=== PATIENT | female | born 1945 | race Caucasian/White ===

== ENCOUNTER → 2017-09-18 | Outpatient (REF) | payer MEDICARE | LOC: M LAB REF 17:44 | PROVIDERS: ATTEND Surgery | DX: C44.41 Basal cell carcinoma of skin of scalp and neck (principal) ==

== ENCOUNTER → 2018-05-16 | Outpatient (REF) | payer MEDICARE | LOC: M LAB REF 16:56 | DX: N76.0 Acute vaginitis (principal) | CPT/HCPCS: 87070 ==

== ENCOUNTER 2018-08-28 09:52 | Day surgery (SDC) | payer MEDICARE ==
[~2018-08-28 09:52] MED LIST: MIDAZOLAM INJ 2 MG/2 ML VIAL (J2250) As Ordered
[2018-08-28] MEDS: PROPARACAINE 0.5% OPHTH SOL 15ML OD (11:13)
[2018-08-28] MEDS: TROPICAMIDE 1% OPHTH SOLN 2ML OD (11:13)
[2018-08-28] MEDS: OFLOXACIN 0.3 % (OCUFLOX) OPTH SOL 5ML OD (11:13)
[2018-08-28] MEDS: PHENYLEPHRINE 2.5% OPHTH SOL 2ML OD (11:13)
[2018-08-28] MEDS ORDERED: fentaNYL 100 MCG/2 ML INJECTION (J3010) As Ordered (12:00)
[2018-08-28] MEDS: POVIDONE-IODINE 5% OPHTH PREP SOL 30ML As Ordered (12:00)
[2018-08-28] MEDS: BALANCED SALT IRRIGATION SOLUTION 500ML BAG (FOR OR EYE MACHINE) As Ordered (12:02)
[2018-08-28] MEDS: LIDOCAINE 0.75%/EPINEPHRINE 0.025% IN BSS 1ML SYR INTRACAMERAL (OR ONLY) As Ordered (12:02)
[2018-08-28] MEDS ORDERED: MIDAZOLAM INJ 2 MG/2 ML VIAL (J2250) As Ordered (12:03)
[2018-08-28] MEDS: DUOVISC (0.50ML VISCOAT/0.55ML PROVISC) OPHTH KIT As Ordered (12:08)
[2018-08-28] MEDS: CEFUROXIME 1MG/0.1ML INTRACAMERAL INJ As Ordered (12:09)
== END 2018-08-28 12:45 | disposition home or self-care (01) ==
LOC: M SDC 09:52
DX: H25.11 Age-related nuclear cataract, right eye (principal); I10 Essential (primary) hypertension; E11.9 Type 2 diabetes mellitus without complications; E78.5 Hyperlipidemia, unspecified; M12.9 Arthropathy, unspecified; R01.1 Cardiac murmur, unspecified; R06.02 Shortness of breath; E66.9 Obesity, unspecified; Z68.41 Body mass index [BMI] 40.0-44.9, adult; Z79.899 Other long term (current) drug therapy; Z85.828 Personal history of other malignant neoplasm of skin; Z78.0 Asymptomatic menopausal state
CPT/HCPCS: 66984

== ENCOUNTER 2018-09-04 07:25 | Day surgery (SDC) | payer MEDICARE ==
[~2018-09-04 07:25] MED LIST changes: +fentaNYL 100 MCG/2 ML INJECTION (J3010) As Ordered
[2018-09-04] MEDS: TROPICAMIDE 1% OPHTH SOLN 2ML OS (08:11)
[2018-09-04] MEDS: PROPARACAINE 0.5% OPHTH SOL 15ML OS (08:11)
[2018-09-04] MEDS: OFLOXACIN 0.3 % (OCUFLOX) OPTH SOL 5ML OS (08:11)
[2018-09-04] MEDS: PHENYLEPHRINE 2.5% OPHTH SOL 2ML OS (08:11)
[2018-09-04] MEDS: BALANCED SALT IRRIGATION SOLUTION 500ML BAG (FOR OR EYE MACHINE) As Ordered (09:24)
[2018-09-04] MEDS: DUOVISC (0.50ML VISCOAT/0.55ML PROVISC) OPHTH KIT As Ordered (09:24)
[2018-09-04] MEDS: POVIDONE-IODINE 5% OPHTH PREP SOL 30ML As Ordered (09:24)
[2018-09-04] MEDS: CEFUROXIME 1MG/0.1ML INTRACAMERAL INJ As Ordered (09:25)
[2018-09-04] MEDS: LIDOCAINE 0.75%/EPINEPHRINE 0.025% IN BSS 1ML SYR INTRACAMERAL (OR ONLY) As Ordered (09:25)
== END 2018-09-04 10:10 | disposition home or self-care (01) ==
LOC: M SDC 07:25
DX: H25.12 Age-related nuclear cataract, left eye (principal); I10 Essential (primary) hypertension; E11.9 Type 2 diabetes mellitus without complications; E78.5 Hyperlipidemia, unspecified; M12.9 Arthropathy, unspecified; R01.1 Cardiac murmur, unspecified; R06.02 Shortness of breath; E66.9 Obesity, unspecified; Z68.41 Body mass index [BMI] 40.0-44.9, adult; Z79.899 Other long term (current) drug therapy; Z85.828 Personal history of other malignant neoplasm of skin; Z78.0 Asymptomatic menopausal state
CPT/HCPCS: 66984

== ENCOUNTER 2018-12-23 15:20 | Inpatient (IN) | payer MEDICARE ==
[~2018-12-23] VITALS: Ht 160 cm; Wt 105.0 kg
[~2018-12-23 15:20] MED LIST changes: +AMLO2.5T3 PO; +FISH1000 PO; +HYDR-3713 PO; +HYDR25TAB PO; +IBUP200C25 PO; +LISI40TA PO; -MIDAZOLAM INJ 2 MG/2 ML VIAL (J2250) As Ordered; +OCUVTAB PO; +POTA10TA16 PO; -fentaNYL 100 MCG/2 ML INJECTION (J3010) As Ordered
[2018-12-23] MEDS ORDERED: LISI40TA PO (16:05)
[2018-12-23 17:20] LABS: BASO # 0.1 10^3/uL (0.0-0.2); BASO % 0.3 % (0.0-1.0); EOS # 0.1 10^3/uL (0.0-0.50); EOS % 0.6 % (0.0-3.0); HEMATOCRIT 38.4 % (36.0-47.0); HEMOGLOBIN 12.4 g/dl (12.0-15.5); LYMPH # 2.3 10^3/uL (1.5-4.5); LYMPH % 14.2 % (24.0-44.0); MEAN CORPUSCULAR HEMOGLOBIN 29.2 pg (27.0-33.0); MEAN CORPUSCULAR HGB CONC 32.3 g/dl (32.0-36.5); MEAN CORPUSCULAR VOLUME 90.6 fl (80.0-96.0); MONO # 1.1 10^3/uL (0.0-0.8); MONO % 6.5 % (0.0-5.0); NEUTROPHILS # 12.5 10^3/uL (1.8-7.7); NEUTROPHILS % 76.3 % (36.0-66.0); PLATELET COUNT, AUTOMATED 535 10^3/uL (150-450); RED BLOOD COUNT 4.24 10^6/uL (4.00-5.40); WHITE BLOOD COUNT 16.3 10^3/uL (4.0-10.0)
[2018-12-23 17:23] LABS: INR 1.13; PROTHROMBIN TIME 14.7 SECONDS (12.1-14.4)
[2018-12-23 17:24] LABS: PARTIAL THROMBOPLASTIN TIME 30.1 SECONDS (25.4-37.6)
[2018-12-23 17:33] LABS: ALT/SGPT 87 U/L (12-78); BLOOD UREA NITROGEN 30 MG/DL (7-18); CALCIUM LEVEL 8.9 MG/DL (8.8-10.2); CARBON DIOXIDE LEVEL 23 MEQ/L (21-32); CHLORIDE LEVEL 106 MEQ/L (98-107); CK-MB VALUE MASS < 1.0 NG/ML (<3.6); CPK CREATINE PHOSPHOKINASE 53 U/L (26-192); GLOMERULAR FILTRATION RATE 31.2 (>39); GLUCOSE, FASTING 190 MG/DL (70-100); MB/CK RELATIVE INDEX 1.89 (< OR =4); POTASSIUM SERUM 4.5 MEQ/L (3.5-5.1); SODIUM LEVEL 138 MEQ/L (136-145)
[2018-12-23 17:34] LABS: ALBUMIN 3.5 GM/DL (3.2-5.2); BILIRUBIN,DIRECT 0.2 MG/DL (0.0-0.2); BILIRUBIN,TOTAL 0.5 MG/DL (0.2-1.0); FREE T4 1.62 NG/DL (0.76-1.46); TOTAL PROTEIN 6.6 GM/DL (6.4-8.2); TROPONIN I < 0.02 NG/ML (< 0.10)
--- NOTE | 2018-12-23 17:56 | REP ---
PA and lateral chest: Comparison is 03/12/2013. There is cardiomegaly. Cardiac size has increased from the prior study. There are bilateral pleural effusions as an interval change. Lung gunter are clear. The ulisses, mediastinum, skeletal structures are unremarkable. Impression: Cardiomegaly and bilateral pleural effusions. Lung gunter are clear. Electronically Signed by Antwan James MD 12/23/2018 05:47 P
[2018-12-23 18:20] LABS: NT-PRO BNP 328 PG/ML (<450)
[2018-12-23 18:21] LABS: INFLUENZA A AMPLIFICATION NEGATIVE (NEGATIVE); INFLUENZA B AMPLIFICATION NEGATIVE (NEGATIVE)
[2018-12-23 19:51] LABS: D-DIMER QUANT > 4000.00 ng/ml (<500)
--- NOTE | 2018-12-23 21:58 | REPVR ---
EXAM: US Duplex Bilateral Lower Extremity Veins EXAM DATE/TIME: 12/23/2018 9:36 PM CLINICAL HISTORY: 73 years old, female; Signs and symptoms; Edema, localized; Lower extremity, bilateral; Additional info: Low ext edema R/O dvt TECHNIQUE: Real-time duplex ultrasound of the Bilateral Lower Extremities with 2-D merino scale, color Doppler flow and spectral waveform analysis. Complete exam focused on the bilateral lower extremity veins. COMPARISON: No relevant prior studies available. FINDINGS: Right deep veins: Unremarkable. The common femoral, femoral, proximal profunda femoral and popliteal veins are patent without thrombus. Normal Doppler waveforms. Normal compressibility and/or augmentation response. Right superficial veins: Saphenofemoral junction is patent without thrombus. Left deep veins: Unremarkable. The common femoral, femoral, proximal profunda femoral and popliteal veins are patent without thrombus. Normal Doppler waveforms. Normal compressibility and/or augmentation response. Left superficial veins: Saphenofemoral junction is patent without thrombus. Soft tissues: Unremarkable. IMPRESSION: No sonographic evidence of deep vein thrombosis. Electronically signed by: Hunter Teague On 12/23/2018 21:58:25 PM
[2018-12-23] MEDS ORDERED: NS 1,000 ML IV ONE (23:00)
[2018-12-23] MEDS ORDERED: HEPARIN DRIP 25,000 UNITS in APPROPRIATE DILUENT 1 EA IV SCH (23:31)
[2018-12-23] MEDS ORDERED: HEPARIN SOD (PORCINE) 5000 UNITS/ML VIAL IV PRN (23:45)
[2018-12-24] VITALS (26 sets, daily range): BP systolic 108–165; BP diastolic 57–96
[2018-12-24] MEDS ORDERED: ACETAMINOPHEN TAB 650MG DOSE (2X325MG) PO PRN (00:30)
--- NOTE | 2018-12-24 01:50 | HPEPDOC ---
[facility] Medical History & Physical Date of Admission Dec 23, 2018 Attending Physician: MELVA SANON MD History and Physical CHIEF COMPLAINT: Shortness of breath HISTORY OF PRESENT ILLNESS: Patient is a 73-year-old female who presented to the [facility] emergency department with complaint of shortness of breath. Patient states that her shortness of breath began on 12/12/2018. 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 Her chest pain has since resolved. However, her shortness of breath has continued since December 12. She states that her shortness of breath has w orsened since that time. Patient states that she does have increased short of breath with ambulation. She denies any cough or hemoptysis. She denies any increased sputum production. She denies difficulty lying flat. She denies waking up short of breath. Patient does state that she has recently traveled to [place] via car. She states that while in [place] on vacation she did develop chills. She currently denies any fevers, however, has not taken her temperature. She denies pain on inspiration or any pleuritic symptoms. She does admit to bilateral lower extremity edema. However, today she denies any calf pain or erythema. Patient denies any history of coagulation disorders either herself or her family. She denies any cardiac history with exception to hypertension. Patient states that she is not on oxygen at home. Patient is a former smoker and quit over 30 years ago. In the ER patient received a chest x-ray which revealed cardiomegaly and bilateral pleural effusions. She additionally received a venous doppler of her lower extremities which was unrevealing for DVT. Hospitalist service was consulted and patient was admitted PAST MEDICAL HISTORY: 1. Hypertension PAST SURGICAL HISTORY: None SOCIAL HISTORY: Patient is a former smoker who quit over 30 years ago. She denies any alcohol use or illicit drug use. She currently lives at home with her family FAMILY HISTORY: Father had coronary artery bypass grafting. ALLERGIES: Please see below. REVIEW OF SYSTEMS: CONSTITUTIONAL: Patient denies fevers, chills, night sweats, unintentional weight loss or weight gain HEENT:. Admits to dry cough, denies congestion or posterior drainage. CARDIOVASCULAR:. Denies chest pain but admits to chest tightness. Denies palpitations or feelings of heart racing. RESPIRATORY: Complains of shortness of breath, worsening for past week. Denies hemoptysis. Complains of dry cough. Denies wheezing GASTROINTESTINAL:. Denies abdominal pain. Denies nausea, vomiting, diarrhea or constipation GENITOURINARY:. Denies difficulty with urination. Denies dysuria. Denies increased frequency, urgency. SKIN:. Denies any rashes or lesions. MUSCULOSKELETAL:. Complains of chronic bilateral knee pain. NEUROLOGICAL: Denies changes in gait or speech. Denies muscle weakness PSYCHIATRIC: Denies feelings of anxiety, depression. ENDOCRINE: Denies heat intolerance or cold intolerance. HEMATOLOGIC/LYMPHATIC:. Denies easy bruising or bleeding. HOME MEDICATIONS: Please see below. PHYSICAL EXAMINATION: VITAL SIGNS: Temperature 98.1, pulse 104, respiratory rate, 20, blood pressure 184\84, pulse oximetry 95 % on room air. GENERAL APPEARANCE:. Patient is awake, alert and oriented 3. She appears no acute distress. She is lying comfortably in bed. Family is present at bedside. HEENT: Atraumatic, normocephalic. Eyes are nonicteric. Trachea is midline. Dentition is fair. CARDIOVASCULAR:. Normal S1, S2. Regular rate and rhythm. No clicks, rubs or murmurs. LUNGS: Clear vesicular lung sounds bilaterally with good respiratory effort. No accessory muscle use. Oxygen saturations of 95-98% on room air. ABDOMEN: Soft, nondistended, nontender to palpation. Positive bowel sounds throughout EXTREMITIES: Slight 1-2 mm nonpitting edema present in bilateral lower extremities, 2+ posterior tibial pulse 2+ radial pulses bilaterally PSYCHIATRIC: Mood and affect appear appropriate. LABORATORY DATA: See below. IMAGING: PA and lateral chest: Comparison is 03/12/2013. There is cardiomegaly. Cardiac size has increased from the prior study. There are bilateral pleural effusions as an interval change. Lung gunter are clear. The ulisses, mediastinum, skeletal structures are unremarkable. Impression: Cardiomegaly and bilateral pleural effusions. Lung gunter are clear. Electronically Signed by Antwan James MD 12/23/2018 05:47 P EXAM: US Duplex Bilateral Lower Extremity Veins EXAM DATE/TIME: 12/23/2018 9:36 PM CLINICAL HISTORY: 73 years old, female; Signs and symptoms; Edema, localized; Lower extremity, bilateral; Additional info: Low ext edema R/O dvt TECHNIQUE: Real-time duplex ultrasound of the Bilateral Lower Extremities with 2-D merino scale, color Doppler flow and spectral waveform analysis. Complete exam focused on the bilateral lower extremity veins. COMPARISON: No relevant prior studies available. FINDINGS: Right deep veins: Unremarkable. The common femoral, femoral, proximal profunda femoral and popliteal veins are patent without thrombus. Normal Doppler waveforms. Normal compressibility and/or augmentation response. Right superficial veins: Saphenofemoral junction is patent without thrombus. Left deep veins: Unremarkable. The common femoral, femoral, proximal profunda femoral and popliteal veins are patent without thrombus. Normal Doppler waveforms. Normal compressibility and/or augmentation response. Left superficial veins: Saphenofemoral junction is patent without thrombus. Soft tissues: Unremarkable. IMPRESSION: No sonographic evidence of deep vein thrombosis. Electronically signed by: Hunter Teague On 12/23/2018 21:58:25 PM MICROBIOLOGY: Please see below. ASSESSMENT and PLAN: 1. Shortness of breath 2/2 Community acquired pneumonia vs pleural effusion vs pulmonary embolism -Patient has developed shortness of breath which has been worsening over the past couple weeks. Chest X-ray in the ER revealed cardiomegaly with bilateral pleural effusions. Patient does admit to chills. Consideration of pneumonia vs pleural effusions. Clinically patient does not appear to be in heart failure. Patient will receive IV Rocephin for possible Pneumonia. -Patient has history of recent travel/immobilization. Venous doppler of lower extremities was unrevealing for DVT. Patient has elevated D-dimer. She remains tachycardic on exam. Patients creatinine is currently elevated and she is unable to receive a CT angiogram. Consider V/Q scan in the AM -Patient to be placed on heparin drip for possible PE pending V/Q scan -Consider possible Echocardiogram for new onset heart failure 2. Hypertension -Continue home medications including Norvasc and hydrochlorothiazide -Hold lisinopril due to elevated creatinine 3. DVT prophylaxis -Patient currently on heparin drip Vital Signs Vital Signs Date Time Temp Pulse Resp B/P (MAP) Pulse Ox O2 Delivery O2 Flow Rate FiO2 12/23/18 20:33 98.9 176/92 (120) 12/23/18 20:31 104 18 99 Room Air 12/23/18 16:01 98 Laboratory Data Labs 24H Laboratory Tests 2 12/23/18 15:50: Immature Granulocyte % (Auto) 2.1, White Blood Count 16.3H, Red Blood Count 4.24, Hemoglobin 12.4, Hematocrit 38.4, Mean Corpuscular Volume 90.6, Mean Corpuscular Hemoglobin 29.2, Mean Corpuscular Hemoglobin Concent 32.3, Red Cell Distribution Width 13.1, Platelet Count 535H, Neutrophils (%) (Auto) 76.3H, Lymphocytes (%) (Auto) 14.2L, Monocytes (%) (Auto) 6.5H, Eosinophils (%) (Auto) 0.6, Basophils (%) (Auto) 0.3, Neutrophils # (Auto) 12.5H, Lymphocytes # (Auto) 2.3, Monocytes # (Auto) 1.1H, Eosinophils # (Auto) 0.1, Basophils # (Auto) 0.1, Nucleated Red Blood Cells % (auto) 0.0, Prothrombin Time 14.7H, Prothromb Time International Ratio 1.13, Activated Partial Thromboplast Time 30.1, D-Dimer, Quantitative > 4000.00H, Anion Gap 9, Glomerular Filtration Rate 31.2L, Calcium Level 8.9, Aspartate Amino Transf (AST/SGOT) 30, Alanine Aminotransferase (ALT/SGPT) 87H, Alkaline Phosphatase 186H, Total Bilirubin 0.5, Direct Bilirubin 0.2, Total Creatine Kinase 53, Creatine Kinase MB < 1.0, Creatine Kinase MB Relative Index 1.89, Troponin I < 0.02, LH-Ock-L-Type Natriuretic Peptide 328, Total Protein 6.6, Albumin 3.5, Albumin/Globulin Ratio 1.13, Thyroid Stimulating Hormone (TSH) 2.570, Free Thyroxine 1.62H 12/23/18 17:28: Influenza Type A (RT-PCR) NEGATIVE, Influenza Type B (RT-PCR) NEGATIVE CBC/BMP Laboratory Tests 12/23/18 15:50 Red Blood Count 4.24, Mean Corpuscular Volume 90.6, Mean Corpuscular Hemoglobin 29.2, Mean Corpuscular Hemoglobin Concent 32.3, Red Cell Distribution Width 13.1, Neutrophils (%) (Auto) 76.3 H, Lymphocytes (%) (Auto) 14.2 L, Monocytes (%) (Auto) 6.5 H, Eosinophils (%) (Auto) 0.6, Basophils (%) (Auto) 0.3, Neutrophils # (Auto) 12.5 H, Lymphocytes # (Auto) 2.3, Monocytes # (Auto) 1.1 H, Eosinophils # (Auto) 0.1, Basophils # (Auto) 0.1 Home Medications Scheduled Amlodipine Besylate (Amlodipine Besylate) 2.5 Mg Tab, 2.5 MG PO DAILY Hydrochlorothiazide (Hydrochlorothiazide) 25 Mg Tab, 25 MG PO DAILY Lisinopril (Lisinopril) 40 Mg Tab, 40 MG PO DAILY Potassium Chloride (Potassium Chloride ER) 10 Meq Tab, 10 MEQ PO DAILY Allergies Coded Allergies: No Known Allergies (Unverified , 08/26/18) GME ATTESTATION GME ATTESTATION My faculty preceptor for this patient encounter was physically present during the encounter and was fully available. All aspects of the patient interview, examination, medical decision making process, and medical care plan development were reviewed and approved by the faculty preceptor. The faculty preceptor is aware and concurs with the plan as stated in the body of this note and will attest to such by his/her cosignature. ADRIEL COOPER DO Dec 24, 2018 01:04 TYE GARCIA MD Dec 24, 2018 21:48
[2018-12-24] MEDS: FUROSEMIDE 40 MG/4 ML VIAL (J1940) IV ONE ×2 (07:45→08:36)
[2018-12-24 07:49] LABS: HEMATOCRIT 35.3 % (36.0-47.0); HEMOGLOBIN 11.5 g/dl (12.0-15.5); MEAN CORPUSCULAR HEMOGLOBIN 29.4 pg (27.0-33.0); MEAN CORPUSCULAR HGB CONC 32.6 g/dl (32.0-36.5); MEAN CORPUSCULAR VOLUME 90.3 fl (80.0-96.0); PLATELET COUNT, AUTOMATED 440 10^3/uL (150-450); RED BLOOD COUNT 3.91 10^6/uL (4.00-5.40); WHITE BLOOD COUNT 14.3 10^3/uL (4.0-10.0)
[2018-12-24 08:09] LABS: CALCIUM LEVEL 8.5 MG/DL (8.8-10.2); CREATININE FOR GFR 1.5 MG/DL (0.55-1.30); POTASSIUM SERUM 4.1 MEQ/L (3.5-5.1)
[2018-12-24] MEDS: POTASSIUM CHLORIDE 10 MEQ SR TABLET PO SCH (08:37)
[2018-12-24] MEDS ORDERED: hydroCHLOROthiazide 25 MG TAB PO SCH (09:00)
--- NOTE | 2018-12-24 09:09 | ECGEPIP ---
Stationary ECG Study [facility] - ED Test Date: 2018-12-23 Pat Name: AUSTIN DENNIS Department: Room: - Gender: F Paint Technician: JUAN PABLO : 1945 Requested By: Morteza Bates Order Number: [id number] Reading MD: Tunde Bazan Measurements Intervals Pateros Rate: 106 P: 43 NE: 183 QRS: -18 QRSD: 88 T: 81 QT: 323 QTc: 430 Interpretive Statements SINUS TACHYCARDIA Delayed anterior R wave progression Low voltages throughout Nonspecific T wave abnormality Comparison tracing not on file Electronically Signed On 12-24-2018 9:09:21 EST by Tunde Bazan
[2018-12-24] MEDS ORDERED: D5W/0.9% SODIUM CHLORIDE 1,000 ML IV SCH (09:51)
--- NOTE | 2018-12-24 10:17 | REP ---
CT study chest without contrast: History: Pericardial effusion. Recent chest x-ray showed bilateral pleural effusions. CT findings: CT confirms the presence of small bilateral pleural effusions. There is a [id number] pericardial effusion also noted. There is no overt evidence of right ventricular compression or deformity. The left atrium appears somewhat prominent measuring up to 4 cm in AP dimension. There is left anterior descending coronary artery focal atherosclerotic calcification. There is no evidence of hilar or mediastinal mass or adenopathy. 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 Lung window settings show mild discoid atelectatic changes in the lower lobes bilaterally adjacent to the effusions. No pulmonary mass or significant nodule is seen. No infiltrate is noted. No bony destructive lesion is appreciated. No adrenal lesion is seen. Gallbladder is surgically absent. There is a cyst in the upper pole of the right kidney. The visualized upper abdominal structures are otherwise unremarkable. Impression: Moderate to large pericardial effusion. Small bilateral pleural effusions. Bilateral lower lobe discoid atelectatic changes. Focal atherosclerotic calcification in the left anterior descending coronary artery. Electronically Signed by Roger Artis MD 12/24/2018 11:00 A
[2018-12-24] MEDS ORDERED: FLUMAZENIL 0.5 MG/5 ML VIAL As Ordered ONE (10:37)
[2018-12-24] MEDS ORDERED: MIDAZOLAM INJ 2 MG/2 ML VIAL (J2250) As Ordered ONE (10:38)
[2018-12-24] MEDS ORDERED: LIDOCAINE 1% MDV 20ML VIAL As Ordered ONE (10:39)
[2018-12-24] MEDS ORDERED: KCL 20MEQ IN D5/NS 1000ML 1,000 ML IV SCH (11:32)
[2018-12-24] MEDS: PERCOCET 5MG/325MG TAB PO PRN ×3 (11:40→21:50)
[2018-12-24] MEDS ORDERED: PERCOCET 5MG/325MG TAB As Ordered ONE (11:42)
[2018-12-24] MEDS ORDERED: BISACODYL 10 MG SUPP PR PRN (11:45)
[2018-12-24] MEDS ORDERED: LEVALBUTEROL 1.25 MG/0.5 ML CONCENTRATE NEB NEB PRN (11:45)
[2018-12-24] MEDS ORDERED: ONDANSETRON 4MG/2ML VIAL (J2405) IV PRN (11:45)
--- NOTE | 2018-12-24 12:12 | REP ---
PORTABLE CHEST: AP portable view of the chest is performed and compared with prior study of 12/23/2018. Left pericardial drain is seen. There is no pneumothorax or pneumomediastinum. Cardiac silhouette has mildly decreased in size. There is parenchymal opacity in the left base. Electronically Signed by Antwan Howard MD 12/24/2018 11:02 P
[2018-12-24] MEDS ORDERED: LIDOCAINE 1% MDV 20ML VIAL SC ONE (12:30)
[2018-12-24] MEDS ORDERED: MIDAZOLAM INJ 2 MG/2 ML VIAL (J2250) IV ONE (12:30)
[2018-12-24 12:38] LABS: PH BODY FLUID 7.724 UNITS (NOT ESTABLISHED); SOURCE, BODY FLUID pH PLEURAL
[2018-12-24 13:04] LABS: APPEARANCE, BODY FLUID CLOTTED (CLEAR); SOURCE, BODY FLUID PERICARDIAL
[2018-12-24] MEDS: DOCUSATE SODIUM 100 MG CAP PO SCH ×2 (13:08→21:48)
[2018-12-24] MEDS: MOM 30ML SUSPENSION UDC PO SCH (13:08)
[2018-12-24 13:10] LABS: SOURCE, BODY FLUID TOT PROTEIN PERICARDIAL; TOTAL PROTEIN, BODY FLUID 4.5 G/DL (NOT ESTABLISHED)
[2018-12-24 13:11] LABS: AMYLASE, BODY FLUID < 25 U/L (NOT ESTABLISHED); CHOLESTEROL, BODY FLUID 115 MG/DL (NOT ESTABLISHED); LDH, BODY FLUID 2612 U/L (NOT ESTABLISHED); SOURCE, BODY FLUID ALBUMIN PERICARDIAL; SOURCE, BODY FLUID AMYLASE PERICARDIAL; SOURCE, BODY FLUID CHOL PERICARDIAL; SOURCE, BODY FLUID GLUCOSE PERICARDIAL; SOURCE, BODY FLUID LDH PERICARDIAL; SOURCE, BODY FLUID TRIG PERICARDIAL; TRIGLYCERIDE, BODY FLUID 101 MG/DL (NOT ESTABLISHED)
--- NOTE | 2018-12-24 14:17 | IPNPDOC ---
Text Note Date of Service The patient was seen on 12/24/18. NOTE Subjective: Patient continued to be SOB this morning. Denied any cough or phle gm. She confirms that she reached [place] on 12/07 then started feeling chills every night from 12/10 and then on 12/12 she had a sharp severe chest pain which woke her up form sleep which lasted for a few minutes then resolved. Since then she has been becoming more and more short of breath. She drove back up here in the end of November and continues to become more SOB. Echo done engineering and operations director showed large pericardial effusion with Features of Tamponade. She was urgently moved to ICU. Dr Cochran was consulted and she had a pericardiocentesis done with removal of 500 cc of bloody fluid. He felt this was all old blood. A pericardial drain was left in place. Heparin infusion has been stopped. PHYSICAL EXAMINATION: VITAL SIGNS: As below GENERAL APPEARANCE:. Patient is awake, alert and oriented 3. She appears no acute distress. She is lying comfortably in bed. Family is present at bedside. HEENT: Atraumatic, normocephalic. Eyes are nonicteric. Trachea is midline. Dentition is fair. CARDIOVASCULAR:. Normal S1, S2. Regular rate and rhythm. No clicks, rubs or murmurs. LUNGS: Clear vesicular lung sounds bilaterally with good respiratory effort. No accessory muscle use. Oxygen saturations of 95-98% on room air. ABDOMEN: Soft, nondistended, nontender to palpation. Positive bowel sounds t hroughout EXTREMITIES:No edema. 2+ posterior tibial pulse 2+ radial pulses bilaterally PSYCHIATRIC: Mood and affect appear appropriate. Labs and Radiology: reviewed. Assessment and Plan: Patient is a 73-year-old female with PMH of Hypertension , arthritis, Morbid obesity, who presented to the [facility] emergency department with complaint of shortness of breath. Patient states that her shortness of breath began on 12/12/2018. 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 Her chest pain has since resolved. However, her shortness of breath has continued since December 12. She states that her shortness of breath has worsened since that time. Patient states that she does have increased short of breath with ambulation. She denies any cough or hemoptysis. She denies any increased sputum production. She denies difficulty lying flat. She denies waking up short of breath. Patient does state that she has recently traveled to [place] via car. She states that while in [place] on vacation she did develop chills. She currently denies any fevers, however, has not taken her temperature. She denies pain on inspiration or any pleuritic symptoms. She does admit to bilateral lower extremity edema. However, today she denies any calf pain or erythema. Patient denies any history of coagulation disorders either herself or her family. She denies any cardiac history with exception to hypertension. Patient states that she is not on oxygen at home. Patient is a former smoker and quit over 30 years ago. In the ER patient received a chest x-ray which revealed cardiomegaly and bilateral pleural effusions. She additionally received a venous doppler of her lower extremities which was unrevealing for DVT. Hospitalist service was consulted and patient was admitted to evaluate for SOB and possible, CHF or PE. SHe was Found to have pericardial Tamponade in echocardiogram. SOB due to Pericardial tamponade relieved by pericardial drain most probably viral in etiology keeping in view the history. Fluid work up has been sent out. Dr Victoria with follow in place of Dr Cochran as be will be on vacation from tomorrow. Unlikely to have a second cause of SOB like PE. DOppler US of legs negative . D dimer can be high from pericardial effusion also. SO will dc heparin infusion and cancel VQ scan. If however Patient continues to be SOB will then again work up for PE Hypertension well controlled. Continue amlodipine. will hold lisinopril and HCTZ for now. BETH do not have any baseline creatinine. will continue to hold lisinopril. DVT prophylaxis. sq heparin VS,Fishbone, I+O VS, Fishbone, I+O Laboratory Tests 12/23/18 15:50 Red Blood Count 4.24, Mean Corpuscular Volume 90.6, Mean Corpuscular Hemoglobin 29.2, Mean Corpuscular Hemoglobin Concent 32.3, Red Cell Distribution Width 13.1, Neutrophils (%) (Auto) 76.3 H, Lymphocytes (%) (Auto) 14.2 L, Monocytes (%) (Auto) 6.5 H, Eosinophils (%) (Auto) 0.6, Basophils (%) (Auto) 0.3, Neutrophils # (Auto) 12.5 H, Lymphocytes # (Auto) 2.3, Monocytes # (Auto) 1.1 H, Eosinophils # (Auto) 0.1, Basophils # (Auto) 0.1 12/24/18 07:35 Red Blood Count 3.91 L, Mean Corpuscular Volume 90.3, Mean Corpuscular Hemoglobin 29.4, Mean Corpuscular Hemoglobin Concent 32.6, Red Cell Distribution Width 13.2, Calcium Level 8.5 L Vital Signs Date Time Temp Pulse Resp B/P (MAP) Pulse Ox O2 Delivery O2 Flow Rate FiO2 12/24/18 12:00 98.2 97 18 134/70 (91) 96 12/24/18 10:55 2.0 12/24/18 00:27 Room Air 12/23/18 16:01 98 I&O- Last 24 Hours up to 6 AM 12/24/18 06:00 Intake Total 350 ml Balance 350 ml MELVA SANON MD Dec 24, 2018 14:17
[2018-12-24] MEDS: LEVALBUTEROL 1.25 MG/0.5 ML CONCENTRATE NEB NEB SCH ×2 (14:36→21:58)
--- NOTE | 2018-12-24 14:44 | RO ---
DATE OF PROCEDURE: 12/24/2018 PREPROCEDURE DIAGNOSIS: Pericardial effusion with tamponade. POSTPROCEDURE DIAGNOSIS: Pericardial effusion with tamponade. PROCEDURE: Tube thoracostomy. SURGEON: Sonny Cochran MD CORPORATE DIRECTOR: ANESTHESIA: FINDINGS: 500 mL of old bloody fluid was drained from the pericardium. It was sent for the requisite cultures and sensitivities, chemistries, hematologies, and cytologies DESCRIPTION OF PROCEDURE: Under satisfactory moderate sedation achieved with 6 mg of Versed, the patient was prepped and draped in the usual sterile fashion. With echocardiographic control, the pericardial effusion was noted best at the apex of the heart, of the left chest. The area was infiltrated with 1% lidocaine, and the explorer needle was placed into the pericardium under echocardiographic control. Wire was placed, and then the wire site was then incised and dilated. A dilator was then passed into the pericardium, followed by a percutaneous drain. This then drained 500 mL of what looked like old blood or blood-tinged fluid. A catheter was secured to the chest wall with two 0 silk sutures and a #2 Tevdek suture. It was placed to pericardial suction. The patient tolerated the procedure well, and a chest x-ray is pending.
--- NOTE | 2018-12-24 15:46 | CR ---
DATE OF CONSULTATION: 12/24/2018 REFERRING PHYSICIAN: Lori De La Rosa MD of the Hospitalist Service. REASON FOR CONSULTATION: Pericardial effusion and possible tamponade. HISTORY OF PRESENT ILLNESS: The patient is a 73-year-old white female who was admitted last night from the emergency room. Her story starts approximately 1-1/2 weeks ago when she was in [place] at [facility] when she started to have fever, chills and sweats along with a cough. This then progressed to increasing shortness of breath. Last night she felt quite distressed and sought medical attention at her primary care doctor who then sent her to the emergency room. She has had a cough accompanying her fever and chills, but no significant sputum production and certainly no hemoptysis. There is no chest pain or chest discomfort. She then developed some chest pressure yesterday, which at least prompted to seek medical attention. Since [place] she denies fever, chills or sweats. There is no pain with inspiration. She has no orthopnea or paroxysmal nocturnal dyspnea. She did drive back from [place]. When seen in the emergency room her creatinine was 1.[address] angiogram was undertaken. She was started on heparin empirically. PAST MEDICAL HISTORY: Hypertension. PAST SURGICAL HISTORY: None. ALLERGIES: None. HABITS: Was a former smoker. Quit over 30 years ago. Denies alcohol or illicit drug use. FAMILY HISTORY: Father had coronary and bypass grafting. REVIEW OF SYSTEMS: Constitutional: See HPI. Eyes: Without amaurosis fugax. Without prior jaundice or diplopia. Cardiac: See HPI. Has noted peripheral edema when she was in [place], but none now. GI: Without abdominal pain, without nausea, vomiting, diarrhea, constipation, melena, hematochezia or hematemesis. : Without dysuria, hematuria or history of renal stones. Endocrine: Without diabetes. Without thyroid disease. Hematological: Without prolonged bleeding times. Neurologic: Without paresthesias, paralysis or prior seizures. Psychiatric: Without pathological anxiety, depression or psychoses. PHYSICAL EXAMINATION: General: A well-developed, obese white female in some respiratory distress with shortness of breath. She occasionally pursed lip breathes. Vital signs: Temperature 98.2, heart rate is 104 in sinus tachycardia. Respiratory rate is 18 to 21 without the use of accessory muscles and she is 98 to 97% saturated on 2 liters nasal cannula. Blood pressure is 134/63. There is no pulsus paradoxus. Head: Normocephalic. Eyes: Equal, round and reactive to light. Extraocular muscles intact. Sclera anicteric. Nose: Without deformity. Mouth: Shows her mucous membranes to be pink and moist. Lips and commissures are without lesions. There is no thrush. Eyes: Show her pupils to be equal, reactive. Extraocular muscles intact. Sclera anicteric. Neck is supple. There is no jugular venous distention, no subcutaneous emphysema. Trachea is midline. There is no thyromegaly and no lymphadenopathy. She has 2+ carotid upstrokes without carotid bruits. Lungs: Show equal breath sounds on either side with normal vesicular sounds, without wheezes, rhonchi or rales. Cardiac examination: Shows distant heart sounds, but with a normal S1, S2, without murmurs, clicks, gallops or rubs that I can ascertain. I cannot feel her point of maximal impulse (PMI) through her obesity. Abdomen: Soft and nontender. Bowel sounds are positive. There is no hepatomegaly. There is no costovertebral angle (CVA) tenderness. Extremities: Show trace pretibial edema, no calf tenderness. No differential swelling of the upper extremities. Skin: Warm and dry, and perfused without cyanosis or mottling including that of the nail beds and the knees. Neuro: Shows II through XII intact. Gross motor and gross sensation intact. Gait is not tested. Psychiatric: Shows her to be awake, alert and oriented times three, with appropriate mood, affect, and conversational. Her white count today is 14.3, down from 16.3 yesterday. Hemoglobin and hematocrit are 11.5 and 35.3 with a platelet count of 440. Yesterdays differential showed 76% neutrophils, 14% lymphocytes and 6% monocytes. There are no immature forms, no toxic granulations. Her electrolytes this morning are normal with a BUN and creatinine of 25 and 1.50, improved from 31.70 yesterday. Glucose is 146 with a calcium of 8.5. PT/INR 14.7 over 1.13 and her PTT is 59 seconds at 7:00 this morning. Her heparin has since been turned off. Her chest x-ray shows a globular heart. Costophrenic angles are sharp, although there looks to be a slight opacity in the left costophrenic angle. I see no other infiltrates. The lateral film shows what is probably a left pleural effusion. I ordered a CT scan on her upon being consulted. The CT scan shows a concentric pericardial effusion. She has bilateral small pleural effusions. They are about equal on either side. There is atelectasis or a possible mass in the left lower lobe. It could also be a consolidated lung. There are no other masses in the lung. She has a pretracheal node just before the jairo that has a lucent center. It is not pathologically enlarged. Her echocardiogram again shows a concentric effusion. The closest approach of the effusion to the chest wall is at the apex of the heart. There is also a window at the subxyphoid window. There is collapse of the right atrium. IMPRESSION: 1. Pericardial effusion with impending tamponade. 2. Infectious upper respiratory infection (URI) process two weeks ago. 3. Hypertension. 4. Probable acute renal failure, probably secondary to decreased perfusion. PLAN AND DISCUSSION: I will immediately undertake a pericardial centesis as well as a tube pericardiostomy. Given her history I suspect this is going to be an infectious process, most likely a viral process. We will send the fluid for all the requisite investigations including cytology, hematology, bacteriologies and chemistries. In my absence, as I am leaving tomorrow, the pulmonary service will monitor her chest tube and remove it when it is less than 75 to 100 mL. I would treat her for a pericarditis with anti-inflammatories including colchicine after removal of the pericardiostomy tube. This again, presupposes that this is going to be an inflammatory infectious process. Until we get the cultures back I would cover her with antibiotics.
[2018-12-25] VITALS (8 sets, daily range): BP systolic 99–134; BP diastolic 52–78
[2018-12-25] MEDS: LEVALBUTEROL 1.25 MG/0.5 ML CONCENTRATE NEB NEB SCH ×4 (01:44→20:06)
[2018-12-25 05:01] LABS: BASO # 0.1 10^3/uL (0.0-0.2); BASO % 0.4 % (0.0-1.0); EOS # 0.3 10^3/uL (0.0-0.50); EOS % 2.2 % (0.0-3.0); HEMATOCRIT 36.3 % (36.0-47.0); HEMOGLOBIN 11.3 g/dl (12.0-15.5); LYMPH % 19.3 % (24.0-44.0); MEAN CORPUSCULAR HGB CONC 31.1 g/dl (32.0-36.5); MEAN CORPUSCULAR VOLUME 93.1 fl (80.0-96.0); MONO # 1.5 10^3/uL (0.0-0.8); MONO % 9.5 % (0.0-5.0); NEUTROPHILS # 10.5 10^3/uL (1.8-7.7); NEUTROPHILS % 67.7 % (36.0-66.0); PLATELET COUNT, AUTOMATED 410 10^3/uL (150-450); WHITE BLOOD COUNT 15.6 10^3/uL (4.0-10.0)
[2018-12-25 05:18] LABS: CALCIUM LEVEL 7.7 MG/DL (8.8-10.2); CREATININE FOR GFR 1.83 MG/DL (0.55-1.30); GLOMERULAR FILTRATION RATE 28.6 (>39); POTASSIUM SERUM 4.5 MEQ/L (3.5-5.1)
--- NOTE | 2018-12-25 06:29 | ECHO ---
DATE OF PROCEDURE: 12/24/2018 REFERRING PHYSICIAN: Dr. Lori De La Rosa. INDICATION: Heart failure unspecified. HEIGHT: 63 inches. WEIGHT: 105 kg. MEASUREMENTS: Left atrium: 3.1 cm Aortic annulus: 2.0 cm Aortic root: 2.6 cm Ventricular septum: 0.99 cm Posterior wall: 0.89 cm Left ventricle diastole: 3.0 cm DOPPLER MEASUREMENTS: Aortic valve velocity: 112 cm/s LVOT velocity: 88.7 cm/s LVOT VTI: 16.6 cm Mitral E velocity: 83.4 cm/s Mitral A velocity: 107 cm/s Extensive partial fusion of the early rapid filling phase with atrial filling phase at 104 beats per minute. Pulmonary artery systolic pressure 52 mmHg by pulmonary acceleration time method. MITRAL ANNULAR TISSUE DOPPLER: E-prime septal: 5.2 cm/s E-prime lateral: 6.1 cm/s DESCRIPTION: Rhythm was sinus tachycardia. Image quality was adequate. This was a 2D, M-mode, color flow Doppler and pulsed wave Doppler examination and included mitral annular tissue Doppler. CONCLUSIONS: 1. Large circumferential pericardial effusion without masses in the pericardial effusion. Rocking motion of the heart within the pericardial effusion and more than 25% respiratory variation of intracardiac velocities and partial collapse of the right atrium and partial collapse of the right ventricle all suggesting or supporting presence of cardiac tamponade. 2. Relatively underfilled left ventricle. Hyperdynamic left ventricle. Hyperdynamic LV systolic function. LVEF 75% by visual estimate. Grade I LV diastolic dysfunction. 3. Suggestive of moderate elevation of pulmonary artery systolic pressure. 4. At least presence of a small right pleural effusion. The above numbers were obtained prior to pericardial drainage. Some additional images were acquired during and immediately following pericardial percutaneous drainage beginning at 11:24 a.m. which show progressive resolution of the pericardial effusion.
[2018-12-25] MEDS: PANTOPRAZOLE 40MG TAB (PROTONIX) PO SCH (08:33)
[2018-12-25] MEDS: POTASSIUM CHLORIDE 10 MEQ SR TABLET PO SCH (08:33)
[2018-12-25] MEDS: MOM 30ML SUSPENSION UDC PO SCH (08:33)
[2018-12-25] MEDS: DOCUSATE SODIUM 100 MG CAP PO SCH ×2 (08:33→20:12)
[2018-12-25] MEDS: PERCOCET 5MG/325MG TAB PO PRN ×3 (09:05→21:51)
--- NOTE | 2018-12-25 09:17 | REP ---
Chest x-ray: Two views. History: Pericardial effusion. Status post pericardial drain. Findings: A pericardial drain remains in place at the base the heart coursing from left to right as before. There is increased density at the left base obscuring the diaphragm and the descending aorta and blunting the left lateral pleural angle consistent with left pleural effusion. There is slight blunting of the right pleural angles as well. Plate-like atelectasis is seen projecting in the left perihilar region. Heart is not enlarged. EKG electrodes are seen. Impression: Developing pleural effusions left greater than right. Pericardial drain remains in place. Electronically Signed by Roger Artis MD 12/25/2018 09:34 A
--- NOTE | 2018-12-25 12:01 | IPN ---
DATE: 12/25/2018 Ms. Momin is now approximately 24 hours status post placement of a pericardiostomy tube. She is feeling much better today and is able to breathe much better. Pain is being well controlled at the pericardial tube insertion site. Her vital signs show a maximum temperature (t-max) of 98.3 with a heart rate that ranges between 89 and 99 in a sinus rhythm, respiratory rate of 18 to 20 without the use of accessory muscles, who is 89 to 93% saturated on 3 liters nasal cannula. Her blood pressure is ranging between 132/72 to 102/55. Her intake and output the past 24 hours has been recorded as 1710 in and 1772 out for a negativity of 62 mL. She has put 572 mL out of the chest tube. The initial chest tube output was 540 mL and in the latter 8 hours of the day she has put out 32 mL. Input and output were not recorded this morning. PHYSICAL EXAMINATION: LUNGS: Her lungs show normal vesicular sounds. I hear no wheezes, rhonchi or rales. Percussion note is full to the diaphragm. CARDIAC EXAM: Squeaks and a rub best heard at the apex. I hear no other murmurs, clicks or gallops. S1, S2 are normal. ABDOMEN: Soft, nontender. Bowel sounds positive. There is no hepatomegaly. No costovertebral angle tenderness. EXTREMITIES: Show 1+ pretibial edema. No calf tenderness. No differential swelling of the upper extremities. SKIN: Warm, dry and perfused without cyanosis or mottling, including that of the nail beds and knees. NECK: Supple. There is no jugular venous distention. No subcutaneous emphysema. Trachea is midline. MOUTH: Shows her mucous membranes to be pink and moist. Lips and commissures without lesions. There is no thrush. EYES: Show her pupils to be equal and reactive. Extraocular motions intact. Sclerae anicteric. NEUROLOGIC: Shows II through XII intact with gross motor and gross sensation intact. Gait is not tested. PSYCHIATRIC: Shows her to be awake and alert, oriented times three with appropriate mood and affect and conversational. Her white count today is 15.6 with a hemoglobin and hematocrit of 11.3 and 36.3, respectively. These are essentially unchanged from yesterday. Platelet count is 410 and differential shows 67% neutrophils, 19% lymphocytes and 9% monocytes. There are no immature forms and no toxic granulations. Her electrolytes are essentially normal with a BUN and creatinine of 23 and 1.83, which has worsened from yesterday of 25 and 1.50. Her pericardial fluid is back with a pH of 7.72, glucose 115, LDH of 2612 with a corresponding LDH of 256 in her serum. There is no differential as the specimen was clotted. Microbiology showed a number of white cells but no organisms on gram stain. Cultures are still pending. Her influenza A and B are negative by PCR. Her chest x-ray today shows a marked improvement in the heart size and heart configuration. It is globular. The pericardial tube is in good place posteriorly and at the base of the heart. There is some slight blunting of the costophrenic angle. The right costophrenic angle was sharp. She did have small bilateral pleural effusions yesterday on her CT scan. IMPRESSION: 1. Bloody pericardial effusion, pathology is still pending. 2. Renal insufficiency, unknown if chronic, but worse today. 3. Hypertension. 4. Upper respiratory infection by history 2 weeks ago. PLAN/DISCUSSION: The pericardial tube looks to be putting out less in the 8 hours since it was placed. It can be removed when the drainage is less than 50 mL a day, the may be tomorrow. Pulmonary service is going to follow her pericardial tube and will discontinue it when appropriate. The main question is to why she has pericarditis. She certainly had an upper respiratory infection and this could very well be a viral process. Viral pericarditis is always diagnosed as exclusion, however. We will have to look for pathology. She does not look as if she has a bacterial process going on, at least not now. Her pericardial fluid was bloody and that was raising the suspicion of malignancy, and we will have to wait for pathology. Bloody pericardial effusions can also be consistent with inflammatory process. If no other reason can be delineated for her pericardial effusion, we should still treat her for a pericarditis with nonsteroidal antiinflammatory drugs and colchicine. She can be followed by cardiology for her pericarditis after the removal of her pericardial tube. This can be done as an outpatient. I am not at all adverse to seeing her in about 2 weeks after discharge as an outpatient.
[2018-12-25] MEDS: NORCO, ANEXSIA 5/325MG TABLET (HYDROcodone/ACETAMINOPHEN) PO PRN (18:31)
--- NOTE | 2018-12-25 20:24 | IPNPDOC ---
Text Note Date of Service The patient was seen on 12/25/18. NOTE Subjective: Patient overall feels better than she has felt in the last 2 weeks. Still has difficulty in taking deep breaths as she says the pericardial drain moves and causes discomfort. SOB is improving. Minimal overnight drainage. No feve or chills, no nausea or vomiting or diarrhea. PHYSICAL EXAMINATION: VITAL SIGNS: As below GENERAL APPEARANCE:. Patient is awake, alert and oriented 3. She appears no acute distress. She is lying comfortably in bed. Family is present at bedside. HEENT: Atraumatic, normocephalic. Eyes are nonicteric. Trachea is midline. Dentition is fair. CARDIOVASCULAR:. Normal S1, S2. Regular rate and rhythm. No clicks, rubs or murmurs. LUNGS: Clear vesicular lung sounds bilaterally with good respiratory effort. No accessory muscle use. Oxygen saturations of 95-98% on room air. ABDOMEN: Soft, nondistended, nontender to palpation. Positive bowel sounds throughout EXTREMITIES:No edema. 2+ posterior tibial pulse 2+ radial pulses bilaterally PSYCHIATRIC: Mood and affect appear appropriate. Labs and Radiology: reviewed. Assessment and Plan: Patient is a 73-year-old female with PMH of Hypertension , arthritis, Morbid obesity, who presented to the [facility] emergency department with complaint of shortness of breath. Patient states that her shortness of breath began on 12/12/2018. 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 Her chest pain has since resolved. However, her shortness of breath has continued since December 12. She states that her shortness of breath has worsened since that time. Patient states that she does have increased short of breath with ambulation. She denies any cough or hemoptysis. She denies any increased sputum production. She denies difficulty lying flat. She denies waking up short of breath. Patient does state that she has recently traveled to [place] via car. She states that while in [place] on vacation she did develop chills. She currently denies any fevers, however, has not taken her temperature. She denies pain on inspiration or any p leuritic symptoms. She does admit to bilateral lower extremity edema. However, today she denies any calf pain or erythema. Patient denies any history of coagulation disorders either herself or her family. She denies any cardiac history with exception to hypertension. Patient states that she is not on oxygen at home. Patient is a former smoker and quit over 30 years ago. In the ER patient received a chest x-ray which revealed cardiomegaly and bilateral pleural effusions. She additionally received a venous doppler of her lower extremities which was unrevealing for DVT. Hospitalist service was consulted and patient was admitted to evaluate for SOB and possible, CHF or PE. SHe was Found to have pericardial Tamponade in echocardiogram. SOB due to Pericardial tamponade Now resolved after pericardial drain. Unlikely to have a second cause of SOB like PE. Doppler US of legs negative . D dimer can be high from pericardial effusion/ pericarditis also. If however Patient continues to be SOB will then again work up for PE Hemorrhagic pericardial effusion Due to most probably viral pericarditis. most probably viral in etiology keeping in view the history of a viral prodromal symptoms 2 weeks ago. However malignancy needs to be ruled out and other bacterial infectious causes cultures are pending Cytology of the fluid is negative for malignant cells. will start treatment for pericarditis with NSAIDS and colchicine after pericardial drain is out. will refer to cardiology on discharge. Dr Victoria with follow in place of Dr Cochran Hypertension well controlled. Continue amlodipine. will hold lisinopril and HCTZ for now. BETH may be prerenal and being on HCTZ with poor oral intake due to feeling unwell for the past 2 weeks. do not have any baseline creatinine. will continue to hold lisinopril. DVT prophylaxis. sq heparin VS,Fishbone, I+O VS, Fishbone, I+O Laboratory Tests 12/25/18 04:47 Red Blood Count 3.90 L, Mean Corpuscular Volume 93.1, Mean Corpuscular Hemoglobin 29.0, Mean Corpuscular Hemoglobin Concent 31.1 L, Red Cell Distribution Width 13.2, Neutrophils (%) (Auto) 67.7 H, Lymphocytes (%) (Auto) 19.3 L, Monocytes (%) (Auto) 9.5 H, Eosinophils (%) (Auto) 2.2, Basophils (%) (Auto) 0.4, Neutrophils # (Auto) 10.5 H, Lymphocytes # (Auto) 3.0, Monocytes # (Auto) 1.5 H, Eosinophils # (Auto) 0.3, Basophils # (Auto) 0.1, Calcium Level 7.7 L Vital Signs Date Time Temp Pulse Resp B/P (MAP) Pulse Ox O2 Delivery O2 Flow Rate FiO2 12/25/18 20:07 87 12/25/18 20:00 98.0 20 134/59 (84) 95 3.0 12/24/18 00:27 Room Air 12/23/18 16:01 98 I&O- Last 24 Hours up to 6 AM 12/25/18 06:00 Intake Total 1360 ml Output Total 1772 ml Balance -412 ml MELVA SANON MD Dec 25, 2018 20:24
[2018-12-26] VITALS (10 sets, daily range): BP systolic 102–145; BP diastolic 52–91; O2SAT 96
[2018-12-26] MEDS: LEVALBUTEROL 1.25 MG/0.5 ML CONCENTRATE NEB NEB SCH ×4 (02:00→20:24)
[2018-12-26 04:58] LABS: BASO # 0.1 10^3/uL (0.0-0.2); BASO % 0.5 % (0.0-1.0); EOS # 0.4 10^3/uL (0.0-0.50); EOS % 3.2 % (0.0-3.0); HEMOGLOBIN 11.5 g/dl (12.0-15.5); LYMPH # 2.8 10^3/uL (1.5-4.5); LYMPH % 20.2 % (24.0-44.0); MEAN CORPUSCULAR HEMOGLOBIN 29.3 pg (27.0-33.0); MEAN CORPUSCULAR HGB CONC 30.3 g/dl (32.0-36.5); MEAN CORPUSCULAR VOLUME 96.9 fl (80.0-96.0); MONO # 1.2 10^3/uL (0.0-0.8); MONO % 8.9 % (0.0-5.0); NEUTROPHILS # 9.1 10^3/uL (1.8-7.7); NEUTROPHILS % 66.3 % (36.0-66.0); PLATELET COUNT, AUTOMATED 368 10^3/uL (150-450); RED BLOOD COUNT 3.92 10^6/uL (4.00-5.40); WHITE BLOOD COUNT 13.8 10^3/uL (4.0-10.0)
[2018-12-26 05:24] LABS: CALCIUM LEVEL 7.7 MG/DL (8.8-10.2); CREATININE FOR GFR 1.74 MG/DL (0.55-1.30); GLOMERULAR FILTRATION RATE 30.4 (>39); POTASSIUM SERUM 5.4 MEQ/L (3.5-5.1)
[2018-12-26] MEDS: PANTOPRAZOLE 40MG TAB (PROTONIX) PO SCH (08:14)
[2018-12-26] MEDS: DOCUSATE SODIUM 100 MG CAP PO SCH ×2 (08:14→21:00)
[2018-12-26] MEDS: MOM 30ML SUSPENSION UDC PO SCH (08:15)
--- NOTE | 2018-12-26 09:31 | REP ---
PA and lateral chest: Comparison is 11/27/2018. There has been interval placement of a left chest tube. There is no pneumothorax. The left pleural effusion is unchanged in size. There is a right pleural effusion, also unchanged in size. Lung gunter otherwise clear. Cardiac size is normal. Electronically Signed by Antwan James MD 12/26/2018 09:22 A
[2018-12-26] MEDS: PERCOCET 5MG/325MG TAB PO PRN (11:05)
[2018-12-26] MEDS ORDERED: FUROSEMIDE 20 MG/2 ML VIAL (J1940) IV ONE (11:15)
--- NOTE | 2018-12-26 14:55 | CCN ---
DATE: 12/26/2018 Patient was seen and examined this morning. Patient had very minimal output from her paracardial drain overnight. She had 8 mL draining from her chest tube in the past 24 hours. This morning she denies any significant chest pain although she does notice a sensation with deep inspiration. She denies any coughing. No fevers or chills. Has not had any increased shortness of breath although she does note she still has some dyspnea on exertion. PHYSICAL EXAMINATION: Temperature 97.2, pulse 92, respirations 20, blood pressure 122/57, oxygen saturation 96% on 2 liters nasal cannula. GENERAL: Patient is sitting in the chair in no apparent distress. Is not using any accessory muscles for respiration and speaking in complete sentences. HEENT: Normocephalic, atraumatic. Mucous membranes are moist. Pupils are equal and reactive. NECK: Supple. There is no jugular venous distention (JVD), but she is sitting upright. No subcutaneous emphysema palpated. CARDIAC EXAM: Regular rate and rhythm, normal S1, S2, no murmurs, possible squeak at the apex. LUNGS: Patient has some crackles noted posteriorly more at the bases. ABDOMEN: Soft, nontender, nondistended. LOWER EXTREMITIES: Have +1 pitting edema bilaterally. LABS: WBC 13.8, hemoglobin 11.5, platelets 368. Chemistry - sodium 134, potassium 5.4, chloride 106, bicarbonate 20, BUN 22, creatinine 1.74, glucose 113. BMP on admission was 328, a repeat was ordered today which was elevated at 1553. Pericardial first set fluid cultures were negative and pericardial cytology and pathology was negative for any malignancy. ASSESSMENT AND PLAN: Patient is a 73-year-old female with a history of hypertension, arthritis who presented with shortness of breath as well as some chest tightness. Patient was found on echocardiogram to have a large pericardial effusion with evidence of cardiac tamponade. Patient had a pericardiostomy tube placed by cardiothoracic surgeon with drainage of what appeared to be sanguineous pericardial effusion. Her first fluid cultures were negative. The fluid appeared to be exudative. The cytology was negative for malignant cells. Patient may have had a pericardial effusion secondary to viral pericarditis given her history of viral prodromal symptoms prior to her admission. Patient has had minimal output from her pericardial drain in the past 24 hours, therefore, we will remove the pericardial drain at this time and place a Vaseline gauze dressing on top. Patient's chest x-ray today appeared to have some increase in her left pleural effusion. She has a trace right pleural effusion and there appears to be evidence of increased pulmonary vasculature congestion, therefore, a BNP was added on her labs from today which did show an increase compared to her initial. She had previously been on hydrochlorothiazide as an outpatient. Suspect that patient has some shortness of breath and hypoxemia requiring nasal cannula supplementation due to pulmonary edema. Therefore, we will give her a dose of IV Lasix 20 mg IV and followup her ins and outs. She has been net positive since admission. We may need to increase or re-dose lasix as needed. Patient did have some evidence of renal dysfunction although we do no have a baseline creatinine for the patient. She may have a component of cardiorenal at this time, would continue to monitor her renal function with some diuresis. Deep venous thrombosis (DVT) prophylaxis. Heparin. Full code MTDD
--- NOTE | 2018-12-26 22:07 | IPNPDOC ---
Text Note Date of Service The patient was seen on 12/26/18. NOTE Subjective: Patient overall feels better than she has felt in the last 2 weeks. Still has difficulty in taking deep breaths as she says the pericardial drain moves and causes discomfort. SOB is improving. Minimal overnight drainage. No fever or chills, no nausea or vomiting or diarrhea. still requiring oxygen. CXR with b/l development of effusions concerning for CHF, some pulmonary edema so will diurese the patient today PHYSICAL EXAMINATION: VITAL SIGNS: As below GENERAL APPEARANCE:. Patient is awake, alert and oriented 3. She appears no acute distress. She is lying comfortably in bed. Family is present at bedside. HEENT: Atraumatic, normocephalic. Eyes are nonicteric. Trachea is midline. Dentition is fair. CARDIOVASCULAR:. Normal S1, S2. Regular rate and rhythm. No clicks, rubs or murmurs. LUNGS: Clear vesicular lung sounds bilaterally with good respiratory effort. No accessory muscle use. Oxygen saturations of 95-98% on room air. ABDOMEN: Soft, nondistended, nontender to palpation. Positive bowel sounds throughout EXTREMITIES:No edema. 2+ posterior tibial pulse 2+ radial pulses bilaterally PSYCHIATRIC: Mood and affect appear appropriate. Labs and Radiology: reviewed. Assessment and Plan: Patient is a 73-year-old female with PMH of Hypertension , arthritis, Morbid obesity, who presented to the [facility] emergency department with complaint of shortness of breath. Patient states that her shortness of breath began on 12/12/2018. 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 Her chest pain has since resolved. However, her shortness of breath has continued since December 12. She states that her shortness of breath has worsened since that time. Patient states that she does have increased short of breath with ambulation. She denies any cough or hemoptysis. She denies any increased sputum production. She denies difficulty lying flat. She denies waking up short of breath. Patient does state that she has recently traveled to [place] via car. She states that while in [place] on vacation she did develop chills. She currently denies any fevers, however, has not taken her temperature. She denies pain on inspiration or any pleuritic symptoms. She does admit to bilateral lower extremity edema. However, today she denies any calf pain or erythema. Patient denies any history of coagulation disorders either herself or her family. She denies any cardiac history with exception to hypertension. Patient states that she is not on oxygen at home. Patient is a former smoker and quit over 30 years ago. In the ER patient received a chest x-ray which revealed cardiomegaly and bilateral pleural effusions. She additionally received a venous doppler of her lower extremities which was unrevealing for DVT. Hospitalist service was consulted and patient was admitted to evaluate for SOB and possible, CHF or PE. SHe was Found to have pericardial Tamponade in echocardiogram. SOB due to Pericardial tamponade Now resolved after pericardial drain. Unlikely to have a second cause of SOB like PE. Doppler US of legs negative . D dimer can be high from pericardial effusion/ pericarditis also. If however Patient continues to be SOB will then again work up for PE Hemorrhagic pericardial effusion Due to most probably viral pericarditis. most probably viral in etiology keeping in view the history of a viral prodromal symptoms 2 weeks ago. However malignancy needs to be ruled out and other bacterial infectious causes cultures are pending Cytology of the fluid is negative for malignant cells. will start treatment for pericarditis with NSAIDS and colchicine after pericardial drain is out. will refer to cardiology on discharge. Dr Victoria with follow in place of Dr Cochran CHF with pulmonary edema got lasix today Hypertension well controlled. Continue amlodipine. will hold lisinopril and HCTZ for now. BETH may be prerenal and being on HCTZ with poor oral intake due to feeling unwell for the past 2 weeks vs cardiorenal due to CHF do not have any baseline creatinine. will continue to hold lisinopril. DVT prophylaxis. sq heparin VS,Fishbone, I+O VS, Fishbone, I+O Laboratory Tests 12/26/18 04:39 Red Blood Count 3.92 L, Mean Corpuscular Volume 96.9 H, Mean Corpuscular Hemoglobin 29.3, Mean Corpuscular Hemoglobin Concent 30.3 L, Red Cell Distribution Width 13.3, Neutrophils (%) (Auto) 66.3 H, Lymphocytes (%) (Auto) 20.2 L, Monocytes (%) (Auto) 8.9 H, Eosinophils (%) (Auto) 3.2 H, Basophils (%) (Auto) 0.5, Neutrophils # (Auto) 9.1 H, Lymphocytes # (Auto) 2.8, Monocytes # (Auto) 1.2 H, Eosinophils # (Auto) 0.4, Basophils # (Auto) 0.1, Calcium Level 7.7 L Vital Signs Date Time Temp Pulse Resp B/P (MAP) Pulse Ox O2 Delivery O2 Flow Rate FiO2 12/26/18 20:26 Nasal Cannula 2.0 12/26/18 16:00 97.9 104 20 120/56 (77) 92 12/23/18 16:01 98 I&O- Last 24 Hours up to 6 AM0 12/26/18 06:00 Intake Total 1140 ml Output Total 358 ml Balance 782 ml MELVA SANON MD Dec 26, 2018 22:06
[2018-12-26] MEDS ORDERED: METOPROLOL TART 25 MG TABLET PO ONE (22:30)
[2018-12-26] MEDS: NORCO, ANEXSIA 5/325MG TABLET (HYDROcodone/ACETAMINOPHEN) PO PRN (23:37)
[2018-12-27] VITALS (7 sets, daily range): BP systolic 89–146; BP diastolic 52–74
[2018-12-27] MEDS: LEVALBUTEROL 1.25 MG/0.5 ML CONCENTRATE NEB NEB SCH ×3 (00:37→20:00)
[2018-12-27 04:21] LABS: BASO # 0.1 10^3/uL (0.0-0.2); BASO % 0.3 % (0.0-1.0); EOS # 0.4 10^3/uL (0.0-0.50); EOS % 2.5 % (0.0-3.0); HEMATOCRIT 34.9 % (36.0-47.0); HEMOGLOBIN 11.2 g/dl (12.0-15.5); LYMPH # 2.6 10^3/uL (1.5-4.5); LYMPH % 17.7 % (24.0-44.0); MEAN CORPUSCULAR HEMOGLOBIN 28.9 pg (27.0-33.0); MEAN CORPUSCULAR HGB CONC 32.1 g/dl (32.0-36.5); MEAN CORPUSCULAR VOLUME 89.9 fl (80.0-96.0); MONO # 1.4 10^3/uL (0.0-0.8); MONO % 9.5 % (0.0-5.0); NEUTROPHILS # 10.1 10^3/uL (1.8-7.7); PLATELET COUNT, AUTOMATED 404 10^3/uL (150-450); RED BLOOD COUNT 3.88 10^6/uL (4.00-5.40); WHITE BLOOD COUNT 14.6 10^3/uL (4.0-10.0)
[2018-12-27 04:48] LABS: CALCIUM LEVEL 7.6 MG/DL (8.8-10.2); CREATININE FOR GFR 1.8 MG/DL (0.55-1.30); GLOMERULAR FILTRATION RATE 29.2 (>39); POTASSIUM SERUM 4.3 MEQ/L (3.5-5.1)
[2018-12-27] MEDS: MOM 30ML SUSPENSION UDC PO SCH (08:37)
[2018-12-27] MEDS: DOCUSATE SODIUM 100 MG CAP PO SCH ×2 (08:37→21:29)
[2018-12-27] MEDS: PANTOPRAZOLE 40MG TAB (PROTONIX) PO SCH (08:37)
[2018-12-27] MEDS: METOPROLOL TART 25 MG TABLET PO SCH ×2 (08:38→21:29)
--- NOTE | 2018-12-27 09:22 | REP ---
PA and lateral chest: Comparison is 12/26/2018. The left chest tube has been removed. There is no pneumothorax. There are bilateral pleural effusions, unchanged. Lung gunter otherwise clear. Cardiac size normal. The ulisses, mediastinum, skeletal structures are unremarkable. Electronically Signed by Antwan James MD 12/27/2018 09:13 A
--- NOTE | 2018-12-27 09:42 | IPN ---
DATE: 12/27/2018 Katya is seen in ICU. She is under the service of Dr. Lori De La Rosa. I am rounding for the hospitalists today. Prior records have been reviewed. She was admitted with shortness of breath secondary to pericardial tamponade, status post pericardial drain. Per nursing staff, she had a lot of drainage from where the pericardial drain was removed yesterday, but it seemed to kolby overnight. She had a grown a few Streptococcus sanguinis on a culture. She has a history of congestive heart failure (CHF) with pulmonary edema for which she has been diuresed. PHYSICAL EXAMINATION: Afebrile. Vital signs stable. Blood pressure 143/74. General Appearance: Alert, conversant, no distress. Lungs: Clear. Heart: Regular rhythm. I did not hear any rub. Abdomen: Soft, nontender. No masses. Trace peripheral edema. LABORATORY: White count 14.6, hemoglobin 11.2, platelets 404. Sodium 138, potassium 4.3, BUN 26, creatinine 1.8, glucose 120. Pericardial fluid grew out a few Streptococcus sanguinis. IMPRESSION: 1. Pericarditis, probably viral. I will start some Rocephin because of the bacterial culture but will plan to discuss this with Dr. Fabian who is covering for the solutions executive security, whether she feels this is infection versus a contaminant. 2. Congestive heart failure (CHF). Continue current regimen. 3. Hypertension. Well controlled on current medication. 4. Acute kidney injury. Renal function is stable but not back to baseline. Suspect cardiorenal syndrome due to CHF. Lisinopril still on hold. Edited 12/27/2018 [facility]
[2018-12-27] MEDS: cefTRIAXone SOD 1 GM in D5W MINI-BAG PLUS 50 ML IV SCH (10:11)
--- NOTE | 2018-12-27 12:21 | ECHO ---
DATE OF PROCEDURE: 12/27/2018 REFERRING PHYSICIAN: Dr. Fabian. INDICATION: Pericardial effusion, shortness of breath. HEIGHT: 158 cm. WEIGHT: 104 kg. DIMENSIONS: IVS: 0.9 LV: 4.3 LVPW: 0.9 LA: 3.0 Aorta: 2.8 Mitral E wave velocity: 79 A wave: 74 E prime septal: 7.2 E prime lateral: 7.6 FINDINGS The study is of fair technical quality with difficult visualization. Left ventricle is of normal size and overall normal systolic function, I estimate EF around 60%. Subtle wall motion abnormalities cannot be reliably ruled out. Right ventricle does not appear grossly enlarged. Both atria are at least mildly enlarged. Aortic valve is minimally sclerotic but has normal mobility. Mitral and tricuspid valves appear normal. Pulmonic valve was not seen. There is small amount of pericardial fat pad and trivial pericardial effusion. No collapse of any of four cardiac chambers. Right pleural effusion is seen. Inferior vena cava was not visualized. Aortic root, aortic arch and visualized segment of abdominal aorta appear normal. Doppler interrogation reveals no significant aortic stenosis or insufficiency. There is also functionally competent mitral valve. Mild tricuspid insufficiency seen. Calculated pulmonary artery pressure is at minimum in 30s corresponding to mild pulmonary hypertension. Mitral inflow pattern and tissue Doppler imaging of mitral annulus reveal grade 2 diastolic dysfunction. CONCLUSIONS: 1. Study is of fair technical quality. 2. Normal LV size with grossly preserved LV systolic function and grade 2 diastolic dysfunction. 3. No hemodynamically significant valvular disease. 4. Unable to estimate central venous pressure but at least mild pulmonary hypertension. 5. Trace pericardial effusion. 6. Right pleural effusion. COMMENT: SBE prophylaxis is not recommended. Compared to prior study from 12/24/2018, previously large pericardial effusion is virtually absent today. MTDD
[2018-12-27] MEDS: NORCO, ANEXSIA 5/325MG TABLET (HYDROcodone/ACETAMINOPHEN) PO PRN (21:29)
[2018-12-28] MEDS: LEVALBUTEROL 1.25 MG/0.5 ML CONCENTRATE NEB NEB SCH ×4 (02:00→20:21)
[2018-12-28 04:36] LABS: BASO # 0.1 10^3/uL (0.0-0.2); BASO % 0.4 % (0.0-1.0); EOS # 0.4 10^3/uL (0.0-0.50); EOS % 3.2 % (0.0-3.0); HEMATOCRIT 34.8 % (36.0-47.0); HEMOGLOBIN 11.1 g/dl (12.0-15.5); LYMPH # 2.9 10^3/uL (1.5-4.5); LYMPH % 21.3 % (24.0-44.0); MEAN CORPUSCULAR HEMOGLOBIN 28.6 pg (27.0-33.0); MEAN CORPUSCULAR HGB CONC 31.9 g/dl (32.0-36.5); MEAN CORPUSCULAR VOLUME 89.7 fl (80.0-96.0); MONO # 1.2 10^3/uL (0.0-0.8); MONO % 8.7 % (0.0-5.0); NEUTROPHILS % 65.7 % (36.0-66.0); PLATELET COUNT, AUTOMATED 413 10^3/uL (150-450); RED BLOOD COUNT 3.88 10^6/uL (4.00-5.40); WHITE BLOOD COUNT 13.7 10^3/uL (4.0-10.0)
[2018-12-28 04:53] LABS: CALCIUM LEVEL 7.9 MG/DL (8.8-10.2); CREATININE FOR GFR 1.73 MG/DL (0.55-1.30); GLOMERULAR FILTRATION RATE 30.6 (>39); POTASSIUM SERUM 4.4 MEQ/L (3.5-5.1)
[2018-12-28 08:00] VITALS: BP 139/62
[2018-12-28] MEDS: PANTOPRAZOLE 40MG TAB (PROTONIX) PO SCH (09:22)
[2018-12-28] MEDS: MOM 30ML SUSPENSION UDC PO SCH (09:22)
[2018-12-28] MEDS: DOCUSATE SODIUM 100 MG CAP PO SCH ×2 (09:22→21:54)
[2018-12-28] MEDS: METOPROLOL TART 25 MG TABLET PO SCH ×2 (09:23→21:55)
[2018-12-28] MEDS: cefTRIAXone SOD 1 GM in D5W MINI-BAG PLUS 50 ML IV SCH (09:24)
--- NOTE | 2018-12-28 09:54 | CCN ---
DATE OF SERVICE: 12/27/2018 Patient was seen and examined this morning during rounds. Patient had her pericardial drain removed yesterday. Patient has some serous fluid output and required some dressing changes during the day, however, overnight she did not appear to have any more output and did not require any further dressing changes. Overnight patient was also noted to have an episode of tachycardia. Patient appeared to be SVT at that time and was asymptomatic. She denies any chest pain or shortness of breath and she was hemodynamically stable. Patient then spontaneously converted back into sinus rhythm. She has not had any further episodes since then. An echocardiogram was ordered last night to evaluate and to see if she had any re-accumulation of her pericardial fluid. This morning, she has noted some increasing cough with occasional production of mucous. She denies any significant increased shortness of breath or dyspnea on exertion. She does have some chest pain and soreness with the increasing coughing. PHYSICAL EXAMINATION: Temperature 98.3, pulse 84, respirations 24, blood pressure 101/52, sating 93% on room air. General: Patient is sitting in the bed in no apparent distress, is not using any accessory muscles with respiration. HEENT: Normocephalic, atraumatic. Moist mucous membranes. Pupils are equal and reactive. Neck is supple. There is no jugular venous distention (JVD). No subcutaneous emphysema palpated. Cardiac exam: Regular rate and rhythm. Normal S1, S2. No murmurs. Lungs: Patient has some crackles noted posteriorly at the bases more on the left side than the right. Abdomen is soft, nontender, nondistended. Lower extremities: There is some trace pitting edema bilaterally. LABS: WBC 14.6, hemoglobin 11.2, platelets 404. Chemistry: Sodium 138, potassium 4.3, chloride 107, bicarbonate 25, BUN 26, creatinine 1.80. Glucose 120. Repeat BMP was 1553. Patient had the initial pericardial fluid culture, on anaerobic was negative and the gram stain was negative. She had another pericardial fluid culture which now grew streptococcus sanguinous which appeared to be sensitive to everything except for tetracycline. IMAGING: Chest x-ray today shows the left chest tube was removed. There was no pneumothorax noted. She has small bilateral pleural effusions. ASSESSMENT AND PLAN: Patient is a 73-year-old female with history of hypertension and arthritis who presented with increasing shortness of breath and chest tightness. Patient had an echocardiogram which showed a large pericardial effusion with evidence of tamponade physiology. Patient had a pericardiostomy tube placed by cardiothoracic surgery with drainage of what appeared to be sanguinous pericardial effusion. Fluid appeared to be exudative and the cytology was negative for malignant cells. Her initial fluid culture, the anaerobic culture had no growth and today her pericardial fluid culture, her second set now grew streptococcus sanguinous. Patient was suspected to have a pericardial effusion possibly secondary to a viral pericarditis. However, given the fluid studies, patient may have had a bacterial pericarditis. Patient may have had the bacterial translocation into her pericardial fluid from a possible bacterial endocarditis. She did not have blood cultures drawn on admission. She was started on ceftriaxone for antibiotics by the primary team. Would continue with ceftriaxone for now and would also check blood cultures. On her echocardiogram, there does not appear to have been any significantly accumulation of pericardial fluid. There was no valvular lesions noted as well. She does have pleural effusion noted on echo. Patient does have some increasing cough today as well and she does still have persistent leukocytosis. Patient also has some pleural effusions noted bilaterally and an increased BMP which may be from fluid overload, however, she may also have an underlying pneumonia or other infiltrate there especially given her increasing cough. Therefore would continue with ceftriaxone and followup the results of her blood cultures as well. Depending on sensitivities patient might be able to be changed to po antibiotics to complete a 2 week course of antibiotics. She was given a dose of Lasix yesterday and is net negative approximately 800 mL. continue to monitor at this time. Her creatinine is slightly increased today although we do not have a baseline renal function for her. We will continue to monitor her renal function. Would consider sending urine lytes with urine sodium, urine urea and urine creatinine to evaluate for her renal dysfunction. Deep venous thrombosis (DVT) prophylaxis with heparin. Patient can likely be downgraded today to telemetry floor Please do not hesitate to call if any further questions or concerns. ZONIA
[2018-12-28 12:00] VITALS: BP 139/60
[2018-12-28 14:50] VITALS: BP 161/74
[2018-12-28 22:00] VITALS: BP 144/58
[2018-12-29] MEDS: LEVALBUTEROL 1.25 MG/0.5 ML CONCENTRATE NEB NEB SCH ×4 (02:00→20:39)
[2018-12-29 06:00] VITALS: BP 144/82
[2018-12-29 06:15] LABS: BASO # 0.1 10^3/uL (0.0-0.2); BASO % 0.5 % (0.0-1.0); EOS # 0.4 10^3/uL (0.0-0.50); EOS % 2.6 % (0.0-3.0); HEMATOCRIT 35.1 % (36.0-47.0); HEMOGLOBIN 11.2 g/dl (12.0-15.5); LYMPH # 2.7 10^3/uL (1.5-4.5); LYMPH % 20.1 % (24.0-44.0); MEAN CORPUSCULAR HEMOGLOBIN 28.7 pg (27.0-33.0); MEAN CORPUSCULAR HGB CONC 31.9 g/dl (32.0-36.5); MONO % 7.6 % (0.0-5.0); NEUTROPHILS % 68.2 % (36.0-66.0); PLATELET COUNT, AUTOMATED 356 10^3/uL (150-450); WHITE BLOOD COUNT 13.2 10^3/uL (4.0-10.0)
[2018-12-29 06:27] LABS: CALCIUM LEVEL 7.8 MG/DL (8.8-10.2); CREATININE FOR GFR 1.51 MG/DL (0.55-1.30); GLOMERULAR FILTRATION RATE 35.8 (>39); POTASSIUM SERUM 4.4 MEQ/L (3.5-5.1)
[2018-12-29 07:51] VITALS: BP 138/79
[2018-12-29] MEDS: PANTOPRAZOLE 40MG TAB (PROTONIX) PO SCH (08:39)
[2018-12-29] MEDS: MOM 30ML SUSPENSION UDC PO SCH ×2 (08:39→08:40)
[2018-12-29] MEDS: DOCUSATE SODIUM 100 MG CAP PO SCH ×3 (08:39→20:47)
[2018-12-29] MEDS: METOPROLOL TART 25 MG TABLET PO SCH ×2 (08:40→20:54)
[2018-12-29] MEDS: cefTRIAXone SOD 1 GM in D5W MINI-BAG PLUS 50 ML IV SCH (10:21)
--- NOTE | 2018-12-29 11:22 | IPN ---
DATE OF SERVICE: 12/29/2018 Katya is seen on [facility]. She is in the hospitalist service. She is status post pericardial drain for pericardial effusion. She grew out a little bit of Streptococcus sanguinis on her culture. She is currently on Rocephin for this. She has a history of congestive heart failure, acute kidney injury superimposed on chronic kidney disease with some suspected cardiorenal syndrome. She had some blood cultures drawn last night. (Unfortunately, the patient is seen without benefit of her transcribed office note from yesterday, which has not been transcribed yet by late morning rounds.) It looks like she had blood cultures drawn perhaps because of leukocytosis. Again, I do not have her note. PHYSICAL EXAMINATION: Afebrile. Vital signs stable. 138/79. Pulse of 80. She has been afebrile since admission. General appearance: Resting comfortably. Looks well. Lungs: Clear. Heart: Regular rate and rhythm. No rub. No drainage from the site of her pericardial drain, where it was pulled. Abdomen: Soft, nontender. No peripheral edema. LABORATORIES: Electrolytes unremarkable. Creatinine is down to 1.5. White count 13.2, hemoglobin is 11.2, platelets 350. Blood cultures are negative so far. IMPRESSION: 1. Pericardial effusion, status post pericardial drain, which has been removed. No further drainage noted. She grew out some Streptococcus sanguinis with a small amount of growth. She is on Rocephin. Will defer to wind turbine performance engineer about whether to continue this upon discharge. 2. Acute kidney injury. Creatinine is improved. 3. Congestive heart failure (CHF). Seems well compensated. 4. Leukocytosis, probably reactive. Echocardiogram shows no evidence of endocarditis. White count has been persistently mildly elevated. Blood cultures are pending. Her blood cultures are negative and if intensivists agree, then she probably could be discharged in the next few days. I would like her to receive a home safety evaluation tomorrow. Dr. Leatha Batista will be assuming her care tomorrow.
[2018-12-29 13:54] VITALS: BP 144/88
[2018-12-29 22:00] VITALS: BP 143/69
[2018-12-30] MEDS: LEVALBUTEROL 1.25 MG/0.5 ML CONCENTRATE NEB NEB SCH ×2 (01:59→08:47)
[2018-12-30 06:00] VITALS: BP 139/68
[2018-12-30 06:32] LABS: BASO # 0.1 10^3/uL (0.0-0.2); BASO % 0.5 % (0.0-1.0); EOS # 0.4 10^3/uL (0.0-0.50); EOS % 3.3 % (0.0-3.0); HEMATOCRIT 36.5 % (36.0-47.0); HEMOGLOBIN 11.6 g/dl (12.0-15.5); LYMPH # 2.6 10^3/uL (1.5-4.5); MEAN CORPUSCULAR HEMOGLOBIN 28.6 pg (27.0-33.0); MEAN CORPUSCULAR HGB CONC 31.8 g/dl (32.0-36.5); MEAN CORPUSCULAR VOLUME 90.1 fl (80.0-96.0); MONO # 0.9 10^3/uL (0.0-0.8); MONO % 7.5 % (0.0-5.0); NEUTROPHILS # 8.2 10^3/uL (1.8-7.7); PLATELET COUNT, AUTOMATED 368 10^3/uL (150-450); RED BLOOD COUNT 4.05 10^6/uL (4.00-5.40); WHITE BLOOD COUNT 12.3 10^3/uL (4.0-10.0)
[2018-12-30 07:04] LABS: CALCIUM LEVEL 7.8 MG/DL (8.8-10.2); CREATININE FOR GFR 1.35 MG/DL (0.55-1.30); GLOMERULAR FILTRATION RATE 40.7 (>39); POTASSIUM SERUM 4.5 MEQ/L (3.5-5.1)
[2018-12-30] MEDS: MOM 30ML SUSPENSION UDC PO SCH (09:00)
[2018-12-30] MEDS: DOCUSATE SODIUM 100 MG CAP PO SCH (09:00)
[2018-12-30 09:28] VITALS: BP 139/68
[2018-12-30] MEDS: METOPROLOL TART 25 MG TABLET PO SCH (09:28)
[2018-12-30] MEDS: PANTOPRAZOLE 40MG TAB (PROTONIX) PO SCH (09:28)
[2018-12-30] MEDS: cefTRIAXone SOD 1 GM in D5W MINI-BAG PLUS 50 ML IV SCH (09:28)
[2018-12-30] MEDS ORDERED: METO1TAB87 PO (11:48)
[2018-12-30] MEDS ORDERED: CEFD300CAP PO (11:48)
--- NOTE | 2018-12-30 20:26 | IPN ---
DATE: 12/28/2018 She was admitted with shortness of breath secondary to pericardial tamponade, status post pericardial drain. The tube was removed on 12/26/2018. The drainage has decreased immensely. She had grown Streptococcus sanguinis on culture. Per the note of Dr. Stacey Fabian, the fisheries management biologist, she states that, given the fluid studies, the patient may have had bacterial pericarditis, may have had the bacterial translocation to her pericardial fluid from a possible bacterial endocarditis. She suggests to continue with ceftriaxone and recheck blood cultures. We will order the cultures. PHYSICAL EXAMINATION: Patient was afebrile. Temperature 97.6, pulse 85, blood pressure 160/74, respirations 20, pulse oximetry 95% on room air. Patient is alert and oriented times three. CHEST: Clear to auscultation without wheeze or retraction. HEART: Regular. ABDOMEN: Benign. Bowel sounds positive. EXTREMITIES: Trace edema. LABORATORY STUDIES: White count continues to decrease, 13.7. Hemoglobin 11.1, hematocrit 34.8, RDW 13.1, platelets 413. Sodium 139, potassium 4.4, chloride 108, CO2 of 25, BUN 26, and creatinine improved at 1.73. IMPRESSION: 1. Pericarditis. Recommendation of Dr. Fabian, will continue antibiotic therapy. 2. Congestive heart failure, clinically stable. Continue current regimen. 3. Hypertension, controlled. 4. Acute kidney injury. Renal function continues to improve. Lisinopril still on hold. MTDD
--- NOTE | 2018-12-30 21:12 | DSES ---
DATE OF ADMISSION: 12/23/2018 DATE OF DISCHARGE: 12/30/2018 PRIMARY CARE PROVIDER: Elinor Henao CONSULTANTS: Cardiothoracic surgery and pulmonology. DISCHARGE DIAGNOSES: 1. Pericardial effusion, status post pericardial drain. 2. Acute kidney injury. 3. Congestive heart failure. 4. Leukocytosis. 5. Hypertension. HOSPITALIZATION COURSE: The patient is a 73-year-old female, presented to [facility] on 12/23/2018 with a complaint of shortness of breath. Workup initiated and due to the suspicion for D-dimer, patient empirically started on heparin drip while waiting for confirmatory study. Later, echocardiogram came back positive for pericardial tamponade. Cardiothoracic surgery consulted. Patient had a pericardiocentesis. Pericardial fluid was sent for culture and pathology. Patient was covered with empiric antibiotics. Later, the patient had pericardial drain tube removal. Later, the patient's pericardial fluid culture came back positive for Streptococcus; sensitivity reviewed and patient continued on antibiotics. Patient continued to improve and later the patient was cleared by physical therapy and patient determined stable for discharge. All the imaging findings were discussed with the patient. Patient understands the importance of following with her primary care provider in 1 week. Patient also to followup with Dr. Cochran in 1-2 weeks. Patient understands she has diastolic dysfunction, and she understands she will follow her daily weight measurements. Vital signs on the day of discharge show a temperature of 98.6, pulse is 80, respiratory rate 18, blood pressure is 139/68, pulse oximetry is 92% on room air. Laboratory data on the day of discharge shows WBC 12.3, hemoglobin 11.6, hematocrit is 36.5, platelet count is 368. Sodium is 139, potassium 4.5, chloride 108, carbon dioxide 23, BUN 22, creatinine is 1.35, GFR is 40.7, fasting glucose 120, calcium 7.8. Microbiology: Pericardial fluid culture from 12/24/2018 is positive for Streptococcus sanguinis. Blood culture from 12/29/2018 showed no growth after 24 hours times two sets. Pericardial fluid cytology showed negative for malignancy. Imaging Studies: Chest x-ray on 12/23/2018 showed cardiomegaly and bilateral pleural effusions. Lung gunter are clear. CT of the chest without contrast on 12/24/2018 showed moderate to large pericardial effusion. Small bilateral pleural effusions. Bilateral lower lobe discoid atelectatic changes. DISCHARGE MEDICATIONS: - Omnicef 300 mg by mouth twice a day for 10 days - metoprolol tartrate 25 mg by mouth twice a day - amlodipine 2.5 mg by mouth daily - hydrochlorothiazide 25 mg by mouth daily - potassium chloride 10 mEq by mouth daily DISCHARGE INSTRUCTIONS: Discontinue line. Discharge home. Activity as tolerated. Low salt diet as tolerated. Patient was instructed to make sure she weighs on a daily basis. If more than a 5-pound weight gain from baseline, patient should notify healthcare provider. Patient should followup with primary care provider in 1 week. Patient should followup with cardiothoracic surgery in 1-2 weeks. Patient was recommended to finish a course of antibiotics. DISCHARGE CONDITION: Fair. DISCHARGE TIME: Greater than 30 minutes.
--- NOTE | 2018-12-31 17:36 | ECGEPIP ---
Stationary ECG Study [facility] Test Date: 2018-12-26 Pat Name: AUSTIN DENNIS Department: Room: [place] [address] Gender: F [employer] Supervisor: KEN : 1945 Requested By: MELVA SANON Order Number: [id number] Reading MD: Blayne Terry Measurements Intervals [place] Rate: 136 P: RI: 0 QRS: -42 QRSD: 121 T: 123 QT: 284 QTc: 428 Interpretive Statements Atrial fibrillation with a rapid ventricular response Left anterior fascicular block Anterior wall myocardial infarction of indeterminate age Nonspecific repolarization abnormalities Compared to prior tracing of 12/23/2018, atrial fibrillation is new Electronically Signed On 12-31-2018 17:36:45 EDT by Blayne Terry
== END 2018-12-30 12:48 | disposition home or self-care (01) | DRG 314 ==
LOC: M ED 15:20 → M ED INP 22:19 → M PCU 12-24 01:15 → M ICU 12-24 10:10 → M MSPAV 12-28 14:41
PROVIDERS: ADMIT Hospitalist; ATTEND Internal Medicine
PROC: 0W9D30Z Drainage of Pericardial Cavity with Drainage Device, Percutaneous Approach (ICD-10-PCS; principal; 2018-12-24)
DX: I30.1 Infective pericarditis (principal); J18.9 Pneumonia, unspecified organism; J90 Pleural effusion, not elsewhere classified; Z68.41 Body mass index [BMI] 40.0-44.9, adult; N17.9 Acute kidney failure, unspecified; I31.2 Hemopericardium, not elsewhere classified; I31.4 Cardiac tamponade; E66.9 Obesity, unspecified; I10 Essential (primary) hypertension; D72.829 Elevated white blood cell count, unspecified; B95.5 Unspecified streptococcus as the cause of diseases classified elsewhere; Z87.891 Personal history of nicotine dependence; Z79.899 Other long term (current) drug therapy

== ENCOUNTER → 2019-01-05 | Outpatient (REF) | payer MEDICARE ==
[~2019-01-05] MED LIST changes: +CEFD300CAP PO; +METO1TAB87 PO
== END ==
LOC: M LAB REF 17:17
PROVIDERS: ATTEND Internal Medicine
DX: J90 Pleural effusion, not elsewhere classified (principal)

== ENCOUNTER 2019-08-11 11:04 | Emergency (ER) | payer MEDICARE ==
[~2019-08-11] VITALS: Ht 165.1 cm; Wt 107.3 kg
--- NOTE | 2019-08-11 12:08 | REP ---
RIGHT KNEE, FIVE VIEWS: Five views right knee are performed. There is no acute fracture or dislocation. There is mild diffuse joint space narrowing, subchondral sclerosis and spurring. There is a moderate joint effusion. IMPRESSION: Diffuse degenerative changes. No acute fracture. Moderate joint effusion. Electronically Signed by Antwan Howard MD 08/12/2019 11:46 A
[2019-08-11] MEDS ORDERED: MELO7.5T35 PO (12:20)
[2019-08-11] MEDS ORDERED: OMEP10CASR PO (12:24)
[2019-08-11] MEDS ORDERED: HYDR-3713 PO (12:24)
[2019-08-11] MEDS ORDERED: METF500T13 PO (12:24)
[2019-08-11 12:46] VITALS: BP 126/62
== END 2019-08-11 13:13 | disposition home or self-care (01) ==
LOC: M ED 11:04
DX: M17.11 Unilateral primary osteoarthritis, right knee (principal); I50.9 Heart failure, unspecified; E11.9 Type 2 diabetes mellitus without complications; I11.0 Hypertensive heart disease with heart failure; E78.5 Hyperlipidemia, unspecified; K21.9 Gastro-esophageal reflux disease without esophagitis; K44.9 Diaphragmatic hernia without obstruction or gangrene; Z90.49 Acquired absence of other specified parts of digestive tract; Z79.84 Long term (current) use of oral hypoglycemic drugs; Z79.899 Other long term (current) drug therapy

== ENCOUNTER → 2019-09-28 | Outpatient (REF) | payer MEDICARE ==
[~2019-09-28] MED LIST changes: +MELO7.5T35 PO; +METF500T13 PO; +OMEP10CASR PO
== END ==
LOC: M LAB REF 16:09
PROVIDERS: ATTEND Radiology Diagnostic Radiology
DX: N63.21 Unspecified lump in the left breast, upper outer quadrant (principal)

== ENCOUNTER → 2019-10-30 | Outpatient (CLI) | payer MEDICARE ==
[~2019-10-30] MED LIST changes: +OMEP-218 PO
[2019-10-30 12:09] LABS: HEMATOCRIT 46.2 % (36.0-47.0); HEMOGLOBIN 14.9 g/dl (12.0-15.5); MEAN CORPUSCULAR HEMOGLOBIN 29.3 pg (27.0-33.0); MEAN CORPUSCULAR HGB CONC 32.3 g/dl (32.0-36.5); MEAN CORPUSCULAR VOLUME 90.8 fl (80.0-96.0); PLATELET COUNT, AUTOMATED 279 10^3/uL (150-450); RED BLOOD COUNT 5.09 10^6/uL (4.00-5.40); WHITE BLOOD COUNT 11.2 10^3/uL (4.0-10.0)
[2019-10-30 12:19] LABS: INR 0.98; PROTHROMBIN TIME 12.7 SECONDS (11.8-14.0)
[2019-10-30 12:37] LABS: BILIRUBIN,TOTAL 0.7 MG/DL (0.2-1.0); CALCIUM LEVEL 9.2 MG/DL (8.8-10.2); CREATININE FOR GFR 1.56 MG/DL (0.55-1.30); GLOMERULAR FILTRATION RATE 34.4 (>39); POTASSIUM SERUM 3.6 MEQ/L (3.5-5.1); TOTAL PROTEIN 7.2 GM/DL (6.4-8.2)
[2019-10-30 13:00] LABS: ERYTHROCYTE SEDIMENTATION RATE 11 mm/hr (0-30)
--- NOTE | 2019-10-30 14:23 | REP ---
CHEST, TWO VIEWS: There is no evidence of acute infiltrate. No pleural effusion is seen. The heart is normal in size. The mediastinal silhouette is unremarkable. The visualized osseous structures are intact. IMPRESSION: No acute pulmonary disease. Electronically Signed by Antwan Howard MD 10/31/2019 03:20 P
--- NOTE | 2019-10-30 17:43 | ECGEPIP ---
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
== END ==
LOC: M LAB 10:53
PROVIDERS: ATTEND Orthopaedic Surgery Hand Surgery
DX: Z01.810 Encounter for preprocedural cardiovascular examination (principal); M25.561 Pain in right knee

== ENCOUNTER 2019-11-11 06:12 | Inpatient (IN) | payer MEDICARE ==
--- NOTE | 2019-11-04 18:17 | CR ---
DATE OF CONSULTATION: 11/11/2019 CONSULTATION REPORT FOR: Dr. Grady REASON FOR CONSULTATION: Right total knee arthroplasty (TKA). Dear Dr. Grady, Thank you for asking me to see Ms. Katya Momin in consultation prior to her right total knee arthroscopy (TKA). Ms. Momin is as you know a 74-year-old female with a past medical history of hypertensive chronic renal disease, type 2 diabetes, hyperlipidemia who reports that she has been in her usual state of good health. The patient notes her activity has been significantly decreased because of progressive osteoarthritis symptoms in her knees over the last 15 years. Her heaviest activity she does is laundry. She denies any chest pain, palpitations, syncope or presyncope. She is using Advil and Vicodin for pain control. The patient has diabetes type 2, recently placed on metformin without any significant complications. The patient reports significant anxiety regarding upcoming surgery, requesting pharmacologic therapy. The patient has multidrug regimen for hypertension, reports compliance, and again denies chest pain or palpitations. The patient otherwise denies any fevers or chills, nausea, vomiting, change in bowels. PAST MEDICAL HISTORY: 1. Hypertensive heart disease. 2. Type 2 diabetes and renal insufficiency. 3. Hyperlipidemia. 4. Osteoarthritis (OA), degenerative joint disease (DJD) predominantly of the knees. 5. Osteopenia. 6. Tobacco abuse, quit in 1993. 7. Herpes zoster. 8. Cardiac tamponade, hospitalized December 2018. 9. Status post cholecystectomy in 1972. 10. In 1973, rectal bleeding with negative BE, ultimately felt to be secondary to uterine polyp and enlarged ovaries. 11. Status post appendectomy in 1972. MEDICATIONS: - amlodipine 2.5 mg daily - hydrochlorothiazide 25 mg daily - Klor-Con 10 mEq daily - metformin 500 mg daily - metoprolol tartrate 25 mg two times a day - Ocuvite daily - omeprazole daily as needed - vitamin D3 2000 international units daily - Vicodin 5/325 as needed - Aleve as needed ALLERGIES: None. SOCIAL HISTORY: , retired, three adult children. Former smoker, occasional alcohol. FAMILY HISTORY: Mother at 80. She had hypertension, congestive heart failure (CHF), coronary artery disease (CAD). Father at 42 of a cerebral hemorrhage. She has a sister with cervical cancer and dementia, two brothers, one with heart disease. PHYSICAL EXAMINATION: Overweight female, in no acute distress but clearly anxious about upcoming surgery. VITAL SIGNS: Weight 236 with a body mass index (BMI) of 40, blood pressure 154/86 with a heart rate of 78. Her oxygen saturation was 98%. HEENT: Head is normocephalic. Neck is supple. Pupils equal and reactive to light. Extraocular movements are intact. Conjunctivae not injected. Sclerae anicteric. Vision grossly normal, wears eyeglasses. Tympanic membranes slightly dull. No significant ceruminosis. Posterior pharynx without inflammation. Neck is supple. No thyromegaly, jugular venous distention (JVD) or carotid bruits. RESPIRATORY: Clear to auscultation, resonant to percussion. BREASTS: Examination deferred. CARDIOVASCULAR: Soft systolic murmur. Regular rate and rhythm. ABDOMEN: Obese, soft, nontender. EXTREMITIES: No cyanosis, clubbing or edema. NEUROLOGIC: Alert and oriented. Cranial nerves II-XII are intact. LABORATORY DATA: 10/30/2019: Normal PT, INR. Metabolic profile significant for a sugar of 156, a GFR of 34. Liver panel shows an alkaline phosphatase of 124 which is down from alkaline phosphatase December of 2018. CBC essentially normal. Last A1c 08/06/2019 was 7.0. Last lipids showed total cholesterol 256 with an LDL of 171. EKG 10/30/2019: Normal sinus rhythm, rate of 75, left axis deviation consistent with left anterior donn block, left bundle branch block, axis -48, normal QTC. EKG without any significant change compared to an EKG 12/23/2018. Echocardiogram 12/27/2018 showed no significant valvular disease, grade 2 diastolic dysfunction, preserved LVEF. IMPRESSION: Ms. Katya Momin is a 74-year-old female with multiple cardiovascular risk factors including hypertension, type 2 diabetes, hyperlipidemia, age, has no signs or symptoms indicative of cardiovascular ischemia, is felt to be optimized and at low risk for cardiovascular complications. Risks can be further minimized by the followin. Hypertension. Take amlodipine and metoprolol the morning of surgery. 2. Diabetes, type 2. Hold metformin two days prior to surgery. 3. Chronic renal insufficiency. No nonsteroidal antiinflammatory drugs (NSAIDs). Use Vicodin or Tylenol for pain control. 4. Dyspepsia. Continue omeprazole including with a sip of water the morning of surgery. 5. Anxiety. Started on BuSpar 5 mg three times a day. I have approved her taking this the morning of surgery. 6. Hyperlipidemia. Consider statin long-term. 7. Osteoarthritis (OA) of the knee. No NSAIDs. Thank you very much for this consultation. Please call with any questions or concerns.
--- NOTE | 2019-11-09 11:29 | HPE ---
DATE OF ADMISSION: 11/11/2019 HISTORY OF PRESENT ILLNESS: This is a pleasant 74-year-old female with continuing symptomatic right knee osteoarthritis. She has consented for a right total knee arthroplasty per Dr. Grady. X-rays were consistent with advanced [id number] contact tricompartmental knee osteoarthritis. Medical optimization was confirmed with Dr. Rebecca Lezama. ALLERGIES: None known to drugs. MEDICATION LIST: Includes amlodipine 2.5 mg daily. Hydrochlorothiazide 25 mg daily. Klor-Con 10 mEq daily. Metformin 500 mg daily. Metoprolol tartrate 25 mg twice a day. Ocuvite daily. Omeprazole daily as needed. Vitamin D3 2000 international units daily. Vicodin 5/325 as needed. Aleve as needed. MEDICAL PROBLEM LIST: Includes symptomatic bilateral knee osteoarthritis. Hypertensive heart disease. Type 2 diabetes and renal insufficiency. Hyperlipidemia. Osteopenia. Tobacco abuse, quit in 1993. Herpes zoster. Cardiac tamponade, hospitalized December 2018. Status post cholecystectomy in 1972. 1973, rectal bleeding with negative BE ultimately felt to be secondary to uterine polyps and enlarged ovaries. Status post appendectomy in 1972. SOCIAL HISTORY: She is , retired, three adult children, quit smoking in 1993, just rare occasional ethanol intake. FAMILY HISTORY: Hypertension, congestive heart failure, coronary artery disease, cerebral hemorrhage, cervical cancer, dementia, and heart disease. REVIEW OF SYSTEMS: She denies chest pain, shortness of breath, dyspnea on exertion, fever, chills, malaise, upper respiratory and urinary tract symptoms. PHYSICAL EXAMINATION: Blood pressure (BP) 132/83, pulse 70, temperature 96.7, height 65.5, weight 230 pounds 4 ounces, body mass index (BMI) 37.7, respiration 14. This is a pleasant obese female in no acute distress. She is alert and orientated times three. Mood and affect are appropriate. She has right knee positive medial joint line tenderness and crepitance about the knee through flexion and extension on range of motion zero past 100. Bilateral lower extremities skin is intact. Benign noninfectious-looking. Bowels sounds, soft, nontender times four. Chest rises symmetrically. Regular rate and rhythm. Lungs: Clear to auscultation. Neck: Supple. Negative jugular venous distention (JVD) or bruits. Normocephalic. Medical optimization note per Dr. Rebecca Lezama. Chest x-ray via [facility], service date 10/30/2019. No acute pulmonary disease. Electrocardiogram (EKG): Normal sinus rhythm, left axis deviation, incomplete left bundle branch block. Lateral ST/T-wave abnormalities. Rhythm change from 12/26/2018. Atrial fibrillation as read by Dr. Chris Mcgill. LABORATORIES: Showed glucose fasting 156, BUN 26, creatinine for GFR 1.56, GFR 34.4. Alkaline phosphatase 124. White count 11.2. As of 11/02/2019. Otherwise unremarkable. IMPRESSION: 1. Right knee symptomatic osteoarthritis. 2. The patient consented for a right total knee arthroplasty per Dr. Grady. 3. Medical optimization per Dr. Rebecca Lezama. 4. On-call to operating room (OR). 3 grams intravenous (IV) Ancef. 5. Sequential compression device (SCD) and thromboembolic deterrents (TEDs) in OR.
[2019-11-11] VITALS (7 sets, daily range): BP systolic 142–171; BP diastolic 73–85
[~2019-11-11] VITALS: Ht 167.6 cm; Wt 104.3 kg
[~2019-11-11 06:12] MED LIST changes: +LR 1,000 ML IV ONE; +ceFAZolin SOD 2 GM in IV 1 EA IV ONE
[2019-11-11] MEDS ORDERED: ceFAZolin 1GM INJ (J0690 PER 500MG) As Ordered ONE (07:50)
[2019-11-11] MEDS ORDERED: BUPIVACAINE LIPOSOME/PF 1.3% 20ML VIAL (13.3MG/ML)(EXPAREL)(C9290 PER1MG) As Ordered ONE (07:51)
[2019-11-11] MEDS ORDERED: EPINEPHrine INJ 1 MG/ML 1ML VIAL As Ordered ONE (07:51)
[2019-11-11] MEDS ORDERED: BUPIVACAINE HCL 0.25% 10 ML VIAL As Ordered ONE (07:51)
[2019-11-11] MEDS ORDERED: fentaNYL 100 MCG/2 ML INJECTION (J3010) As Ordered ONE ×2 (08:04→09:55)
[2019-11-11] MEDS ORDERED: MIDAZOLAM INJ 2 MG/2 ML VIAL (J2250) As Ordered ONE ×2 (08:04→09:55)
[2019-11-11] MEDS: MIDAZOLAM INJ 2 MG/2 ML VIAL (J2250) IV PRN ×2 (08:20→08:21)
[2019-11-11] MEDS: fentaNYL 100 MCG/2 ML INJECTION (J3010) IV PRN ×6 (08:20→12:30)
[2019-11-11] MEDS ORDERED: TRANEXAMIC ACID 100 MG/ML 10ML VIAL As Ordered ONE (08:55)
[2019-11-11] MEDS ORDERED: dexameTHASONE 4 MG/ML 1ML VIAL (J1100) As Ordered ONE (09:55)
[2019-11-11] MEDS ORDERED: propofoL 200 MG/20 ML VIAL As Ordered ONE (09:55)
[2019-11-11] MEDS ORDERED: LIDOCAINE 2% INJ 100 MG/5 ML SDV (FOR ANES.) As Ordered ONE (09:55)
[2019-11-11] MEDS ORDERED: ROCURONIUM BROMIDE 50 MG/5 ML VIAL As Ordered ONE (09:55)
[2019-11-11] MEDS ORDERED: ONDANSETRON 4MG/2ML VIAL (J2405) As Ordered ONE ×2 (09:55→11:58)
[2019-11-11] MEDS ORDERED: ACETAMINOPHEN 1000MG 100ML IV BTL (OFIRMEV) (J0131 PER 10MG) As Ordered ONE (10:10)
[2019-11-11] MEDS ORDERED: SUGAMMADEX SODIUM 500 MG/5 ML VIAL (BRIDION) As Ordered ONE (10:23)
[2019-11-11] MEDS ORDERED: KETOROLAC 60 MG/2 ML VIAL (J1885) As Ordered ONE (10:24)
[2019-11-11] MEDS ORDERED: HYDROmorphone HCL 2 MG/ML 1ML VIAL (J1170) As Ordered ONE (10:29)
[2019-11-11] MEDS ORDERED: ROPIvacaine 0.5% 30 ML INJECTION (J2795 PER 1MG) ONE (10:46)
[2019-11-11] MEDS: ONDANSETRON 4MG/2ML VIAL (J2405) IV PRN ×2 (12:15→12:41)
[2019-11-11] MEDS ORDERED: PERCOCET 5MG/325MG TAB As Ordered ONE (12:29)
[2019-11-11] MEDS ORDERED: HYDROMORPHONE HCL 0.5 MG/ 0.5 ML SYRINGE (J1170 PER 1) As Ordered ONE (12:29)
[2019-11-11] MEDS: PERCOCET 5MG/325MG TAB PO PRN ×3 (12:32→18:25)
--- NOTE | 2019-11-11 12:38 | REP ---
Portable right knee . Postoperative study: Two views. There is a total knee arthroplasty with the components tightly applied and in satisfactory positions and alignment. This skin geovanny are incidentally identified. Intra-articular fluid and air is incidentally identified as a postoperative change. Electronically Signed by Antwan James MD 11/11/2019 12:30 P
[2019-11-11] MEDS ORDERED: METOCLOPRAMIDE INJ 10MG/2ML VIAL (J2765) IV PRN (12:45)
[2019-11-11] MEDS: HYDROMORPHONE HCL 0.5 MG/ 0.5 ML SYRINGE (J1170 PER 1) IV PRN ×2 (12:45→13:09)
[2019-11-11] MEDS ORDERED: LR 1,000 ML IV SCH ×2 (12:45→15:30)
--- NOTE | 2019-11-11 13:20 | RO ---
DATE OF PROCEDURE: 11/11/2019 PREPROCEDURE DIAGNOSIS: Right knee osteoarthritis. POSTPROCEDURE DIAGNOSIS: Right knee osteoarthritis. PROCEDURE: Right total knee replacement. INDICATION: 74-year-old female who failed nonoperative medical treatment. We discussed the risks and benefits of surgical intervention, including infection, damage to surrounding structures, incomplete relief and wished to proceed. IMPLANTS: Size 4 femur, size 5 tibia, 6 mm rotating platform insert, DePuy Attune knee. COMPLICATIONS: None. TOURNIQUET TIME: 110 minutes. SURGEON: Jareth Grady MD RESOURCE FORESTER: YANIRA Sandra, who was essential for arana retractions, arana portions of the procedure. ANESTHESIA: General. ESTIMATED BLOOD LOSS: Minimal. PREOPERATIVE ANTIBIOTICS: 2 grams of Ancef. DESCRIPTION OF PROCEDURE: The patient was brought to the operating room and laid in supine position. After a failed spinal, the patient underwent general anesthesia, at which point the right leg was prepped and draped in the usual fashion. We then held a time-out confirming the site, side and surgery. Once in agreement, we elevated the tourniquet up to 250 mmHg. We then made a longitudinal incision along the anterior knee. Sharply dissected and used coagulation to control superficial bleeding encountering the knee capsule. We then made a knee arthrotomy with a small cut at the medial quad tendon medially. We removed the anterior fat pad and medial meniscus and the suprapatellar fat synovium, at which point we sacrificed for the anterior cruciate ligament (ACL) and posterior cruciate ligament (PCL), removed mediolateral tibial osteophytes, along with femur osteophytes. We then drilled our central canal and did a distal femur cut with a 9 mm resection, condyle cuts, at which point we used posterior referencing guide and measured size 4 femur, we used the cutting guide to do the anterior, posterior and two chamfer cuts, using an osteotome to remove the posterior condyles, along with any posterior osteophytes. We then turned out attention to the tibia. We protected the tibia forward and removed the remaining medial meniscus, along with the lateral meniscus. At which point, we used the external tibia jig and did a resection of 2 mm, referencing the deepest portion of the medial condyle. We then used a slotted cup, careful to protect the MCL and LCL and patellar tendon. At this point, we resized our tibia. We then inserted a 6 mm trial with a posterior stabilized platform. After we inserted the trial for the posterior stabilized, we put the femur and tibia in place. We arranged the knee to get our rotation. We marked this rotation anteriorly and removed the femur and tibial trial that had been placed and prepared our tibia in the usual fashion. At which point, we trialed a #6 of the rotating platform insert. We were happy with the medial and lateral stress in both full extension, flexion. We then prepared our patellar using two towel clips to invert and did a skim cut. We measured to be a 35 patella. We drilled our three peg holes, at which point we irrigated the joint thoroughly removing any debris and started mixing the cement. Once the tibia, femur and patella were prepped, we inserted the tibia first, carefully removing excess cement, proceed with the femur, removing excess cement under compression, inserted a 6 trial poly and clamped on the patella. While the cement was hardening, we inserted 25 mL of Exparel. At which point, we irrigated thoroughly once again. Once the cement was hardened and removed the insert, we trialed and we were happy with the 6 mm trial and inserted our 6 mm poly. We then closed the capsule with Stratafix with interrupted 0 Vicryl. Subcutaneous tissue with 2-0 Vicryl and geovanny for skin. Placed dressing over top and let down the tourniquet approximately 110 minutes. The patient was awakened and taken to the postanesthesia care unit (PACU) in stable condition. POSTOPERATIVE PLAN: The patient to work on pain control and range of motion. She will be admitted to the hospital and started on deep vein thrombosis (DVT) prophylaxis and antibiotic prophylaxis, work on ambulation later today and early tomorrow with hopeful discharge tomorrow. ZONIA
[2019-11-11] MEDS ORDERED: DEXTROSE 50% 50 ML SYRINGE IV PRN (15:00)
[2019-11-11] MEDS ORDERED: GLUCAGON FOR INJ 1 MG VIAL (J1610) SC PRN (15:00)
[2019-11-11] MEDS ORDERED: GLUCOSE 4 GM CHEW TABLET PO PRN (15:00)
[2019-11-11] MEDS ORDERED: PERCOCET 5MG/325MG TAB PO ONE (15:15)
[2019-11-11] MEDS ORDERED: MORPHINE 4 MG/ML 1ML VIAL/SYRINGE (J2270) IV ONE (15:15)
[2019-11-11] MEDS ORDERED: MORPHINE 4 MG/ML 1ML VIAL/SYRINGE (J2270) As Ordered ONE (15:15)
[2019-11-11] MEDS ORDERED: MORPHINE 4 MG/ML 1ML VIAL/SYRINGE (J2270) IV PRN (15:30)
[2019-11-11] MEDS ORDERED: MORPHINE 2 MG/ML 1ML VIAL (J2270) IV PRN (15:30)
[2019-11-11] MEDS ORDERED: ONDANSETRON 4MG/2ML VIAL (J2405) IV PRN (15:30)
[2019-11-11] MEDS ORDERED: ceFAZolin SOD 2 GM in IV 1 EA IV SCH (17:00)
[2019-11-11] MEDS: ceFAZolin SOD 2 GM in IV 1 EA IV SCH ×2 (17:15→21:33)
[2019-11-11] MEDS: HumaLOG INSULIN (NovoLOG) PER UNIT SC SCH ×2 (17:30→20:16)
--- NOTE | 2019-11-11 19:33 | CR ---
DATE OF CONSULTATION: 11/11/2019 PRIMARY CARE PROVIDER: Dr. Rebecca Lezama CHIEF COMPLAINT: Right knee pain for an elective right total knee arthroplasty. HISTORY OF PRESENT ILLNESS: 74-year-old female with a past medical history significant for pericardial tamponade diagnosed in December 2018 thought to be secondary to pericarditis with fluid growing Streptococcus sanguinis, treated with IV ceftriaxone in the intensive care unit (ICU), status post pericardiostomy, abnormal electrocardiogram (EKG) with chronic left bundle branch block, left anterior hemiblock, grade I diastolic dysfunction, ejection fraction 75%, hypertension, diabetes, dyslipidemia, chronic kidney disease stage III, baseline creatinine 1.3 to 1.5, who presents for right total knee arthroplasty. The patient was medically optimized by Dr. Lezama and has been doing well. Postoperatively, the patient developed 10 out of 10 pain after the anesthesia had worn off in the postoperative right knee. The patient otherwise denies any changes in weight, fever, chills, upper respiratory infection, dysuria, urgency, frequency, polyphagia, polydipsia, chest pain, pressure, tightness, shortness of breath, palpitations, lightheadedness, paroxysmal nocturnal dyspnea, orthopnea, melena, black tarry stools, coffee ground emesis, bright red blood per rectum, upper or lower extremity weakness, paresthesias, changes in vision, decrease in appetite, weight gain, weight loss, anxiety or depression. All other systems are otherwise negative. PAST MEDICAL HISTORY: 1. Pericardial tamponade secondary to pericarditis. 2. History of Streptococcus sanguinis in the pericardial fluid. No signs of endocarditis. 3. Chronic left bundle branch block with left anterior hemiblock. 4. Grade I diastolic dysfunction, ejection fraction 75%. 5. Dyslipidemia. 6. Hypertension. 7. Diabetes. 8. Osteoarthritis of the bilateral knees. 9. Dyspepsia. 10. Chronic kidney disease stage III, baseline creatinine 1.5. 11. History of rectal bleed with negative barium enema. 12. Osteopenia. 13. Appendectomy. PAST SURGICAL HISTORY: 1. Appendectomy in 1972. 2. Tube thoracostomy with pericardiostomy in December 2018 secondary to large pericardial effusion with negative malignancy. 3. Uterine polyp, enlarged ovaries in the past. 4. Negative barium enema for rectal bleeding. ALLERGIES: No known drug allergies. HOME MEDICATIONS: - hydrochlorothiazide 25 mg daily - hydrocodone/acetaminophen 5/325 one tablet three times a day as needed for pain - metformin 500 mg daily - amlodipine 2.5 mg daily - metoprolol 25 mg twice a day - Prilosec 20 mg daily as needed for reflux - potassium chloride 10 mEq daily - vitamin E - Ocuvite with selenium one tablet daily SOCIAL HISTORY: Lives with . Quit smoking in 1993. Denies any alcohol or recreational drug use. . Retired. Three adult children. FAMILY HISTORY: Father at age 42 with coronary artery disease and myocardial infarction, cerebral hemorrhage. Mother at age 80 with hypertension, coronary artery disease, and congestive heart failure (CHF). Sister with cervical cancer and dementia. Two brothers -- one brother had coronary artery disease. REVIEW OF SYSTEMS: As per history of present illness . 12-point system otherwise negative. PHYSICAL EXAMINATION: VITAL SIGNS: Temperature 97.5, pulse 75, respiratory rate 16, blood pressure 147/74, 99% on 2 liters nasal cannula. GENERAL: The patient is awake, alert and oriented to person, place and time. Answering questions appropriately. No jugular venous distention (JVD). No thyromegaly. Pupils are round, reactive to light and accommodation. Extraocular muscles are intact. Normocephalic, atraumatic. Moist mucous membranes. LUNGS: Air entry is equal bilaterally. Clear to auscultation. No wheezing, rales or rhonchi. HEART: S1, S2. Sinus rhythm. No murmurs, rubs or gallops. ABDOMEN: Obese. Soft, nontender, nondistended. Positive bowel sounds times four quadrants. No rebound, guarding. No hepatosplenomegaly. No abdominal bruits. EXTREMITIES: Postoperative left knee, bandaged. Dorsalis pedis and posterior tibialis noted. SKIN: Warm, dry and well perfused. The patient is able to wiggle her toes bilaterally. LABORATORY DATA: None. IMAGING STUDIES: 11/11/2019 knee x-ray on the right shows total knee arthroplasty with components in satisfactory position and alignment. Skin geovanny were identified. Intraarticular fluid and air incidentally identified as a postoperative change. ASSESSMENT AND PLAN: This is a 74-year-old female with a history of pericardial effusion in December 2018 secondary to pericarditis, pericardiostomy and tube thoracostomy, grade I diastolic dysfunction, ejection fraction of 75%, diabetes, hypertension, dyslipidemia, osteoarthritis, anxiety, dyspepsia, chronic kidney disease stage III, zoster and history or uterine polyp and enlarged ovaries with chronic left bundle branch block, left anterior hemiblock, who presented for elective right total knee arthroplasty. IMPRESSION: 1. Right total knee arthroplasty secondary to osteoarthritis, degenerative joint disease, perioperative management per orthopedic surgery, Dr. Grady, including bowel regimen, deep vein thrombosis (DVT) prophylaxis, activity level, and perioperative antibiotics. 2. Hypertension. The patient may be resumed on her home dose of amlodipine and metoprolol, hold off on hydrochlorothiazide. 3. History of left ventricular diastolic dysfunction with ejection fraction of 75%. The patient may resume back on her home dose of metoprolol. 4. Abnormal EKG with chronic left bundle branch block, left anterior hemiblock. The patient currently has no acute ischemic symptoms. We will monitor at this time. 5. Type 2 diabetes. Resumed on consistent carbohydrate diet. Check A1/c level in the morning. Hold off on metformin. Continue on sliding scale with coverage for now. May resume metformin as an outpatient at hospital discharge. 6. Dyslipidemia. Check fasting lipid profile in the morning. 7. Chronic kidney disease stage III. Avoid nephrotoxins and renally dose all medications. Avoid nonsteroidal antiinflammatory drugs (NSAIDs). DISPOSITION: Physical therapy (PT) and occupational therapy (OT) consulted. Defer to primary team. MTDD
[2019-11-11] MEDS: METOPROLOL TART 25 MG TABLET PO SCH (20:17)
[2019-11-12] VITALS (7 sets, daily range): BP systolic 138–169; BP diastolic 51–85; O2SAT 91–96
[2019-11-12] MEDS: PERCOCET 5MG/325MG TAB PO PRN ×4 (01:17→17:52)
[2019-11-12] MEDS: ceFAZolin SOD 2 GM in IV 1 EA IV SCH (03:51)
[2019-11-12] MEDS ORDERED: PERCOCET 5MG/325MG TAB PO PRN (06:30)
[2019-11-12] MEDS ORDERED: PERC5TAB12 PO (06:55)
[2019-11-12] MEDS ORDERED: XARE10TA PO ×2 (06:55→08:08)
[2019-11-12 07:03] LABS: HEMATOCRIT 35.6 % (36.0-47.0); HEMOGLOBIN 11.6 g/dl (12.0-15.5); MEAN CORPUSCULAR HEMOGLOBIN 29.5 pg (27.0-33.0); MEAN CORPUSCULAR HGB CONC 32.6 g/dl (32.0-36.5); MEAN CORPUSCULAR VOLUME 90.6 fl (80.0-96.0); PLATELET COUNT, AUTOMATED 228 10^3/uL (150-450); RED BLOOD COUNT 3.93 10^6/uL (4.00-5.40); WHITE BLOOD COUNT 15.9 10^3/uL (4.0-10.0)
[2019-11-12 07:12] LABS: INR 1.17; PROTHROMBIN TIME 14.6 SECONDS (11.8-14.0)
[2019-11-12 07:26] LABS: HEMOGLOBIN A1c 7.2 %
[2019-11-12 07:41] LABS: CALCIUM LEVEL 8.1 MG/DL (8.8-10.2); CHOLESTEROL RISK RATIO 3.541 (<5); CREATININE FOR GFR 1.75 MG/DL (0.55-1.30); GLOMERULAR FILTRATION RATE 30.1 (>39); POTASSIUM SERUM 3.4 MEQ/L (3.5-5.1); THYROID STIMULATING HORMONE 1.55 uIU/ML (0.358-3.740)
[2019-11-12] MEDS: MIRALAX *UNIT DOSE* 17GM PACKET PO SCH (08:12)
[2019-11-12] MEDS: OCUVITE 1 TAB PO SCH (08:12)
[2019-11-12] MEDS: MOM 30ML SUSPENSION UDC PO SCH (08:12)
[2019-11-12] MEDS: METOPROLOL TART 25 MG TABLET PO SCH ×2 (08:13→20:38)
[2019-11-12] MEDS: POTASSIUM CHLORIDE 10 MEQ SR TABLET PO SCH (08:13)
[2019-11-12] MEDS: HumaLOG INSULIN (NovoLOG) PER UNIT SC SCH ×4 (08:14→20:08)
[2019-11-12] MEDS ORDERED: OMEPRAZOLE 20 MG CAP PO PRN (09:00)
--- NOTE | 2019-11-12 09:46 | IPN ---
DATE: 11/12/2019 SUBJECTIVE: The patient complains that this morning of a sharp throbbing and pain on the right medial mid thigh where the local anesthesia was given yesterday. There is some redness and no hematoma. There is no significant thrombophlebitic changes. She says that the pain medications are working when she does get it the pain gets down to 2/10. She is worried about being discharged today as her has hip problems and he has a doctors appointment tomorrow and she will be alone at home. Otherwise she slept well. She is able to move her right lower extremity. She has good feeling without any paresthesias. No fevers or chills overnight. Blood pressure is slightly high this morning 169 but no complaints of chest pain, pressure, tightness, shortness of breath headaches or changes in vision. Patient denies any chills, history of urgency or frequency. No cough. PHYSICAL EXAMINATION: Temperature 98.1, pulse 74, respiratory rate 18, blood pressure 169/51, 96% on room air. Generally awake and alert and oriented times three answering questions appropriately. No JVD, no thyromegaly, moist mucous membranes. No carotid bruit. Lungs are clear to auscultation. No wheezing rales, or rhonchi. Heart S1, S2 sinus rhythm. No murmurs, rubs, or gallops. Abdomen is obese soft and nontender, nondistended. Extremities, the patient is postop right knee. She has some erythema along the right medial side but no thrombophlebitic changes. There is some tenderness but no mobile masses. Postop right knee, the patient has good sensation without decrease with motor function 5/5 times two bilateral upper extremities. Left lower extremity limited on the right due to postop right knee bandaged. LABS: White count 15.9, hemoglobin 11, hematocrit 35, platelet count 228, metabolic panel, lipid panel, A1c is still pending. ASSESSMENT AND PLAN: This is a 74-year-old female with a history of large pericardial effusion status post pericardiostomy secondary to pericarditis with streptococcus sanguinous in the pericardial fluid but no signs of endocarditis. Chronic left bundle branch block with left anterior hemiblock and abnormal EKG grade 1 diastolic dysfunction, CHF, ejection fraction of 75%, hypertension, diabetes, dyslipidemia, bilateral osteoarthritis, dyspepsia and chronic kidney disease stage 3 with a history of rectal bleed with negative barium enema and tube thoracostomy, uterine polyp with enlarged ovaries in the past, admitted for right knee arthroplasty due to severe osteoarthritis with limitations of activities of daily living. CURRENT ISSUES: 1. Right total knee arthroplasty secondary to osteoarthritis, DJD, able for perioperative management including perioperative antibiotics, DVT prophylaxis, bowel regimen and pain control, activity level to orthopedic surgeon Dr. Grady, physical therapy has been consulted. She complains of pain at the anesthesia injection site but there is no signs of cellulitis or thrombophlebitis at this time. The patient is requesting to stay one more day. She has no support system at home. Her has hip problems and will be unable to assist her and has an appointment tomorrow. 2. Hypertension uncontrolled. Patient has not received any of her medications today. She has been taken off of hydrochlorothiazide in the perioperative area. She may be resumed on her home dose of amlodipine and metoprolol, titrate as needed and resume hydrochlorothiazide. 3. History of left ventricular diastolic dysfunction, CHF EF of 75% with preserved ejection fraction. Patient is current euvolemic. She is currently on metoprolol which she may resume. 4. Abnormal EKG with chronic left bundle branch block, left anterior hemiblock. Patient is exhibiting no acute ischemic symptoms despite high blood pressure. 5. Type 2 diabetes. A1c is still pending. Patient is on currently on sliding scale while she has been inpatient, may be resumed back on metformin as an outpatient. Dyslipidemia, lipid panel is still pending today. Chronic kidney disease stage 3, nephrotoxins have been dosed on medications. Avoid NSAIDS opioid, narcotics for pain control. 6. DVT prophylaxis. Per orthopedic surgery. Currently on Xarelto 10 mg daily. DISPOSITION: Deferred to orthopedics surgery. Patient is not comfortable with being discharged today as she has no support system at home. MTDD
[2019-11-12] MEDS ORDERED: RIVAROXABAN 10 MG TAB (XARELTO) PO ONE (18:00)
[2019-11-12] MEDS ORDERED: RIVAROXABAN 10 MG TAB (XARELTO) PO SCH (18:00)
[2019-11-13] MEDS: PERCOCET 5MG/325MG TAB PO PRN ×3 (02:36→10:43)
[2019-11-13 05:37] VITALS: BP 149/69
[2019-11-13 06:12] LABS: HEMATOCRIT 34.7 % (36.0-47.0); HEMOGLOBIN 11.6 g/dl (12.0-15.5); MEAN CORPUSCULAR HEMOGLOBIN 30.1 pg (27.0-33.0); MEAN CORPUSCULAR HGB CONC 33.4 g/dl (32.0-36.5); MEAN CORPUSCULAR VOLUME 89.9 fl (80.0-96.0); PLATELET COUNT, AUTOMATED 217 10^3/uL (150-450); RED BLOOD COUNT 3.86 10^6/uL (4.00-5.40)
[2019-11-13 06:31] LABS: INR 1.53; PROTHROMBIN TIME 18.1 SECONDS (11.8-14.0)
[2019-11-13 08:22] VITALS: BP 149/69
[2019-11-13] MEDS: MOM 30ML SUSPENSION UDC PO SCH (08:22)
[2019-11-13] MEDS: OCUVITE 1 TAB PO SCH (08:22)
[2019-11-13] MEDS: METOPROLOL TART 25 MG TABLET PO SCH (08:22)
[2019-11-13] MEDS: MIRALAX *UNIT DOSE* 17GM PACKET PO SCH (08:22)
[2019-11-13] MEDS: HumaLOG INSULIN (NovoLOG) PER UNIT SC SCH (08:22)
[2019-11-13] MEDS: POTASSIUM CHLORIDE 10 MEQ SR TABLET PO SCH (08:23)
== END 2019-11-13 11:25 | disposition home or self-care (01) | DRG 470 ==
LOC: M OR 06:12 → M MS5PR 13:35
PROVIDERS: ADMIT Orthopaedic Surgery Hand Surgery; ATTEND Orthopaedic Surgery Hand Surgery
PROC: 0SRC0J9 Replacement of Right Knee Joint with Synthetic Substitute, Cemented, Open Approach (ICD-10-PCS; principal; 2019-11-11 08:00)
DX: M17.11 Unilateral primary osteoarthritis, right knee (principal); I13.0 Hypertensive heart and chronic kidney disease with heart failure and stage 1 through stage 4 chronic kidney disease, or unspecified chronic kidney disease; I50.32 Chronic diastolic (congestive) heart failure; N18.3 Chronic kidney disease, stage 3 (moderate); Z79.899 Other long term (current) drug therapy; E11.9 Type 2 diabetes mellitus without complications; E78.5 Hyperlipidemia, unspecified; Z87.891 Personal history of nicotine dependence; F41.9 Anxiety disorder, unspecified; I44.4 Left anterior fascicular block

== ENCOUNTER → 2021-02-13 | Outpatient (CLI) | payer MEDICARE ==
[~2021-02-13] MED LIST changes: +HYDR-3490 PO; -HYDR25TAB PO; -LISI40TA PO; +LISI40TA4 PO; -LR 1,000 ML IV ONE; +PERC5TAB12 PO; +XARE10TA PO; -ceFAZolin SOD 2 GM in IV 1 EA IV ONE
--- NOTE | 2021-02-13 14:17 | REP ---
INDICATION: PAIN LATERAL 5TH DIGIT. COMPARISON: None. TECHNIQUE: Four views FINDINGS: Lffl-[id number] degenerative changes seen throughout the foot. There is a large plantar calcaneal heel spur. There is no evidence of an acute fracture, dislocation, or subluxation.. IMPRESSION: Chronic changes as described above. <Electronically signed by Jose Miguel Gaona > 02/13/21 [id number]
== END ==
LOC: M WUC 11:47
PROVIDERS: ATTEND Physician Assistant Medical
DX: M19.072 Primary osteoarthritis, left ankle and foot (principal); M77.32 Calcaneal spur, left foot

== ENCOUNTER → 2022-01-05 | Outpatient (REF) | payer MEDICARE ==
[~2022-01-05] MED LIST changes: +OMEP-173 PO; -OMEP-218 PO; +POTA-149 PO; -POTA10TA16 PO
== END ==
LOC: M SFHCDERM 17:34
PROVIDERS: ATTEND Dermatology
DX: L90.5 Scar conditions and fibrosis of skin (principal)

== ENCOUNTER → 2022-02-16 | Outpatient (CLI) | payer MEDICARE | LOC: M WUC 08:50 | PROVIDERS: ATTEND Registered Nurse | DX: M16.11 Unilateral primary osteoarthritis, right hip (principal); R93.6 Abnormal findings on diagnostic imaging of limbs ==

== ENCOUNTER → 2022-04-26 | Outpatient (CLI) | payer MEDICARE | LOC: M RAD 07:23 | PROVIDERS: ATTEND Internal Medicine Nephrology | DX: I12.9 Hypertensive chronic kidney disease with stage 1 through stage 4 chronic kidney disease, or unspecified chronic kidney disease (principal); N18.30 Chronic kidney disease, stage 3 unspecified ==

== ENCOUNTER → 2022-07-24 | Outpatient (REF) | payer MEDICARE | LOC: M LAB REF 16:21 | PROVIDERS: ATTEND Registered Nurse | DX: M10.9 Gout, unspecified (principal) ==

== ENCOUNTER → 2022-08-02 | Outpatient (CLI) | payer MEDICARE | LOC: M RAD 07:56 | PROVIDERS: ATTEND Physician Assistant | DX: M47.896 Other spondylosis, lumbar region (principal); M51.36 Other intervertebral disc degeneration, lumbar region | CPT/HCPCS: 78306; A9503 ==

== ENCOUNTER → 2022-10-26 | Outpatient (REF) | payer MEDICARE ==
[2022-10-26 18:31] LABS: CREATININE, URINE 59.8 MG/DL
== END ==
LOC: M LAB REF 16:44
PROVIDERS: ATTEND Internal Medicine Nephrology
DX: R80.9 Proteinuria, unspecified (principal)

== ENCOUNTER → 2022-10-26 | Outpatient (REF) | payer MEDICARE ==
[2022-10-26 18:50] LABS: HEMOGLOBIN A1c 7.9 % (4.0-6.0)
[2022-10-26 19:11] LABS: ALBUMIN 3.9 G/DL (3.2-5.2); BILIRUBIN,TOTAL 0.6 MG/DL (0.3-1.2); CREATININE FOR GFR 1.35 MG/DL (0.55-1.30); GLOMERULAR FILTRATION RATE 40.3 (>39); POTASSIUM SERUM 4.2 MMOL/L (3.5-5.1); TOTAL PROTEIN 6.7 G/DL (5.7-8.2)
[2022-10-26 19:13] LABS: TOTAL 25(OH) VITAMIN D 17.7 NG/ML (20.0-100.0)
== END ==
LOC: M LAB REF 17:08
PROVIDERS: ATTEND Internal Medicine
DX: E78.00 Pure hypercholesterolemia, unspecified (principal); I12.9 Hypertensive chronic kidney disease with stage 1 through stage 4 chronic kidney disease, or unspecified chronic kidney disease; M10.9 Gout, unspecified; N18.32 Chronic kidney disease, stage 3b; E83.42 Hypomagnesemia; Z79.899 Other long term (current) drug therapy

== ENCOUNTER → 2023-08-01 | Outpatient (REF) | payer MEDICARE | LOC: M LAB REF 16:42 | PROVIDERS: ATTEND Internal Medicine | DX: M10.9 Gout, unspecified (principal) ==

== ENCOUNTER → 2023-09-02 | Outpatient (REF) | payer MEDICARE ==
[2023-09-02 17:18] LABS: CREATININE FOR GFR 1.38 MG/DL (0.55-1.30); GLOMERULAR FILTRATION RATE 39.2 (>32)
== END ==
LOC: M WUC 16:34
PROVIDERS: ATTEND Physician Assistant
DX: M47.896 Other spondylosis, lumbar region (principal); M51.36 Other intervertebral disc degeneration, lumbar region; M16.11 Unilateral primary osteoarthritis, right hip

== ENCOUNTER → 2023-11-11 | Outpatient (CLI) | payer MEDICARE | LOC: M PLAIMG 08:18 | PROVIDERS: ATTEND Internal Medicine | DX: R06.02 Shortness of breath (principal) ==

== ENCOUNTER → 2023-11-11 | Outpatient (CLI) | payer MEDICARE | LOC: M WHC 07:30 | PROVIDERS: ATTEND Internal Medicine | DX: Z12.31 Encounter for screening mammogram for malignant neoplasm of breast (principal); Z13.820 Encounter for screening for osteoporosis; M85.851 Other specified disorders of bone density and structure, right thigh; M85.852 Other specified disorders of bone density and structure, left thigh ==

== ENCOUNTER → 2024-07-22 | Outpatient (REF) | payer MEDICARE | LOC: M LAB REF 11:47 | PROVIDERS: ATTEND Internal Medicine | DX: M10.9 Gout, unspecified (principal) ==

== ENCOUNTER → 2024-08-17 | Outpatient (REF) | payer MEDICARE ==
[2024-08-17 17:52] LABS: BACTERIA, URINE AUTO 1+ (NEGATIVE); MUCUS, URINE SMALL (NEGATIVE); RBC, URINE AUTO 60 /HPF (0-3); SQUAMOUS EPITHELIAL CELL UR AU 17 /HPF (0-6); WBC, URINE AUTO 94 /HPF (0-3)
== END ==
LOC: M LAB REF 17:08
PROVIDERS: ATTEND Internal Medicine Nephrology
DX: N30.01 Acute cystitis with hematuria (principal)

== ENCOUNTER → 2024-10-29 | Outpatient (REF) | payer MEDICARE | LOC: M LAB REF 13:31 | PROVIDERS: ATTEND Internal Medicine | DX: M10.9 Gout, unspecified (principal) ==

== ENCOUNTER → 2024-12-08 | Outpatient (REF) | payer MEDICARE | LOC: M LAB REF 12:11 | PROVIDERS: ATTEND Internal Medicine | DX: M10.9 Gout, unspecified (principal) ==

== ENCOUNTER → 2025-01-25 | Outpatient (REF) | payer MEDICARE ==
[2025-01-25 18:47] LABS: URIC ACID 6.4 MG/DL (3.1-7.8)
[2025-01-27 10:08] LABS: C REACTIVE PROTEIN QUANTITATIV 0.65 MG/DL (<1.0)
== END ==
LOC: M LAB REF 17:36
PROVIDERS: ATTEND Internal Medicine
DX: M10.9 Gout, unspecified (principal)